=== PATIENT | female | born 1995 | race Caucasian/White ===

== ENCOUNTER → 2018-04-23 14:38 | Outpatient (CLI) | payer MEDICAID, SELFPAY ==
[2018-04-23 17:28] LABS: Chlamydia Trachomatis by PCR Negative (Negative); Neisserai gonorrhoeae by PCR Negative (Negative); Probe Check PASS; Sample Adequacy Control PASS; Specimen Processing Control PASS
== END ==
PROVIDERS: Visit Provider Obstetrics & Gynecology
DX: Z11.3 Encounter for screening for infections with a predominantly sexual mode of transmission (principal)
CPT/HCPCS: 87491; 87591

== ENCOUNTER → 2018-05-17 15:26 | Outpatient (CLI) | payer MEDICAID, SELFPAY ==
[2018-05-17 15:50] LABS: Absolute Lymphocyte Count 2.15 X10^3/ul (0.83-4.51); Absolute Neutrophil Count 6.7 X10^3/uL (2.0-7.7); Basophil# 0.01 X10^3/uL; Basophil% 0.1 % (0-1); Eosinophil# 0.08 X10^3/uL; Eosinophils% 0.8 % (0-5); Hematocrit 34.4 % (37-47); Hemoglobin 11.7 g/dl (12.0-15.0); Lymphocyte # 2.15 X10^3/ul (4.0); Lymphocyte % 22.6 % (19-41); Mean Corpuscular Hgb 32.3 pg (27.0-32.0); Monocyte# 0.59 X10^3/uL; Monocyte% 6.2 % (0-10); Neutrophil # 6.65 X10^3/uL (2.7-7.7); Neutrophil % 70.1 % (47-70); Platelet Count 235 K/mm3 (150-450); RBC Distribution Width CV 11.7 % (11.6-14.6); RBC Distribution Width SD 39.7 fl (35.1-43.9); Red Blood Count 3.62 M/mm3 (4.2-5.4); White Blood Count 9.5 K/mm3 (4.4-11.0)
[2018-05-17 15:51] LABS: POSITIVE COUNT NO; POSITIVE DIFFERENTIAL NO; POSITIVE MORPHOLOGY NO
[2018-05-17 15:58] LABS: Color, Urine Yellow (Yellow); Glucose, Dipstick Normal (Normal); Ketone-Dipstick Negative (Negative); Leukocyte Esterase-Dipstick Negative /ul (Negative); Nitrite-Dipstick Negative (Negative); Occult Blood-Urine Negative /ul (Negative); Protein-Dipstick Negative (Negative); Specific Gravity, Urine 1.015 (1.002-1.030); Urine Bilirubin Dipstick Negative (Negative); Urine Clarity Sl. Cloudy (Clear); Urine Urobilinogen 1 mg/dl (Normal); Urine pH 6.5 (5.0 - 8.0)
[2018-05-17 16:45] LABS: Thyroid Stim Hormone (TSH) 0.72 uIU/mL (0.358-3.74)
[2018-05-17 17:16] LABS: Amphetamine Urine VISTA NEGATIVE (<1000 ng/mL); Barbiturate Urine VISTA NEGATIVE (< 200 ng/mL); Benzodiazepine Urine VISTA NEGATIVE (< 200 ng/mL); Cocaine Urine VISTA NEGATIVE (< 300 ng/mL); Ecstacy Urine VISTA NEGATIVE (< 500 ng/mL); Methadone Urine VISTA NEGATIVE (< 300 ng/mL); PCP Urine VISTA NEGATIVE (< 25 ng/mL); THC Urine VISTA NEGATIVE (< 50 ng/mL); Vista UDS pH Range 6
[2018-05-17 17:23] LABS: HIV - WCH Non-Reactive (Nonreactive)
[2018-05-18 03:12] LABS: Prenatal RPR NONREACTIVE (NONREACTIVE)
[2018-05-20 10:03] LABS: HEPATITIS B SURFACE AG Negative (Negative); Hep C Antibodies <0.1 s/co ratio (0.0-0.9)
== END ==
PROVIDERS: Visit Provider Obstetrics & Gynecology
DX: Z34.81 Encounter for supervision of other normal pregnancy, first trimester (principal)
CPT/HCPCS: 36415; 80307; 81002; 84443; 85025; 86703; 86762; 86803; 87340

== ENCOUNTER → 2018-09-24 13:49 | Outpatient (CLI) | payer MEDICAID, SELFPAY ==
[2018-09-24 16:25] LABS: Glucose Challenge Gest 1H 50g 105 mg/dL (70-140); Hemoglobin 11.7 g/dl (12.0-15.0); Mean Corp Hgb Conc 34.4 g/gl (32-36); Mean Corpuscular Hgb 33.5 pg (27.0-32.0); Mean Corpuscular Volume 97.4 fL (81-99); Mean Platelet Vol. 10.1 fl (6.2-12.0); Platelet Count 257 K/mm3 (150-450); RBC Distribution Width CV 12.5 % (11.6-14.6); RBC Distribution Width SD 42.1 fl (35.1-43.9); Red Blood Count 3.49 M/mm3 (4.2-5.4); White Blood Count 11.9 K/mm3 (4.4-11.0)
[2018-09-24 16:28] LABS: Scan Indicated on CBC? Y/N NO
== END ==
PROVIDERS: Visit Provider Obstetrics & Gynecology
DX: Z34.83 Encounter for supervision of other normal pregnancy, third trimester (principal)
CPT/HCPCS: 36415; 82950; 85027; 86850

== ENCOUNTER → 2018-11-08 15:37 | Outpatient (CLI) | payer MEDICAID, SELFPAY | PROVIDERS: Visit Provider Obstetrics & Gynecology | DX: Z36.85 Encounter for antenatal screening for Streptococcus B (principal) | CPT/HCPCS: 87081 ==

== ENCOUNTER 2018-12-12 15:50 | Inpatient (IN) | payer MEDICAID, SELFPAY ==
[2018-12-12 16:12] VITALS: BMI 27.3
[2018-12-12] MEDS: Lactated Ringers 1,000 ML 50 ML IV (16:20)
[2018-12-12 16:40] LABS: Absolute Lymphocyte Count 2.16 X10^3/uL (0.83-4.51); Absolute Neutrophil Count 9.8 X10^3/uL (2.0-7.7); Basophil# 0.01 X10^3/uL; Basophil% 0.1 % (0-1); Eosinophil# 0.04 X10^3/uL; Eosinophils% 0.3 % (0-5); Hematocrit 37.4 % (37-47); Hemoglobin 12.8 g/dL (12.0-15.0); Lymphocyte # 2.16 X10^3/ul (4.0); Lymphocyte % 16.7 % (19-41); Mean Corp Hgb Conc 34.2 g/dL (32-36); Mean Corpuscular Hgb 33.6 pg (27.0-32.0); Mean Corpuscular Volume 98.2 fL (81-99); Mean Platelet Vol. 10.4 fl (6.2-12.0); Monocyte# 0.85 X10^3/uL; Monocyte% 6.6 % (0-10); NRBC Flagged by Analyzer 0 % (0-5); Neutrophil # 9.81 X10^3/uL (2.7-7.7); Neutrophil % 75.8 % (47-70); Platelet Count 290 K/mm3 (150-450); RBC Distribution Width CV 12.2 % (11.6-14.6); Red Blood Count 3.81 M/mm3 (4.2-5.4); White Blood Count 12.9 K/mm3 (4.4-11.0)
[2018-12-12 17:36] LABS: Amphetamine Urine VISTA NEGATIVE (<1000 ng/mL); Barbiturate Urine VISTA NEGATIVE (< 200 ng/mL); Benzodiazepine Urine VISTA NEGATIVE (< 200 ng/mL); Cocaine Urine VISTA NEGATIVE (< 300 ng/mL); Ecstacy Urine VISTA NEGATIVE (< 500 ng/mL); Methadone Urine VISTA NEGATIVE (< 300 ng/mL); PCP Urine VISTA NEGATIVE (< 25 ng/mL); THC Urine VISTA NEGATIVE (< 50 ng/mL); Vista UDS pH Range 6
--- NOTE | 2018-12-12 17:37 | HP.PCM_ITS ---
History and Physical Date of Admission: 12/12/18 [facility] ANTEPARTUM RECORD - HISTORY AND PHYSICAL (12/12/2018) Name: MARION ZAIDI History of This : This is a 23-year-old patient who presents to labor and delivery for induction for severe IUGR at 40 weeks 5 days gestation. Baby is in the 2nd percentile. OB Physician: REID 's Physician: PED INSTALLER INSPECTOR FINAL ...................................................................... : 1995 Age: 23 Address: [address] [place] [address] Phone: (h) [phone] [facility] Car[facility] [id number] Emergency Contact: KECIA ZAIDI [phone] ...................................................................... Final VALENTINO: 12/07/18 By Ultrasound: PARITY: (G-Total Pregnancies P-Fullterm,Premature,Induced AB,Spont AB, Ectopics, Multiple,Living) VALENTINO CONFIRMATION: By LMP: 03/02/18 Final VALENTINO: 12/07/18 BLOOD TYPE: AFP: 1 HR PG: GBS: Original Ordering Provider: Laisha See Comments: VAGINAL/RECTAL RG Culture Group B Beta Streptococcus is not isolated. Rublla titer (>10 immune)-- Hepatatis B elmer AG-- CULTURES:-- OB PROBLEM LIST: Dilated aortic root in patient; consider echo 20 weeks to confirm stable --stable at 22 weeks MSAFP and CF testing declined O NEGATIVE RhoGAM at 28-29 wks Office childbirth class encouraged. 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 Drug Use - denies use of street drugs Sexual Activity - single sexual partner Residence - lives with mom Place of - [place], [place] Hours Worked - less than 40 Spouse-Sig Other Name - FOB- Kings Thornton Spouse-Sig Other Occupation - [employer] Spouse-Sig Other Phone No - [phone] PRIOR DELIVERY HISTORY DEL DATE GEST LAB WT LB WT OZ TYPE ANES LABOR TX ANTEPARTUM FLOW CHART VISIT GE RTC FU F F MD U U DATE WK MD WKS HT PN HR M SS BP ED WT MD GL D EF ST __ ____ ___ __ __ ___ __ __ __ ___ __ __ __ ___ __ 25 Nov 40 JMW 6 33 V + + 128/68 sl 161 - - 1+ 50 P 18 Nov 39 JMW 1 38 V + + 126/84 tr 161 tr - ft 50 -1 11 Nov JMW 1 38 V + 122/80 sl 159 tr - ft 0 -3 04 Nov 37 JMW 1 124/84 0 157 tr - 28 Oct JMW 1 36 + + 114/80 0 156 - - Oct JMW 1 35 V + + 122/80 sl 155 - - ft 25 -3 Oct JMW 3 34 + + 110/62 0 151 - - Oct 15 SHM 3 28 ? + + 104/68 0 146 - - Sep 12 JMW 2 26 + + 120/70 0 144 - - August 09 JMW 3 22 + + 90/60 0 143 - - August 05 JMW 4 20 + + 122/76 0 140 - - May 31 JMW 4 15 + ? 122/66 0 139 - - Apr 29 JMW 4 + 100/70 0 139 - - ANTEPARTUM NOTE(S): Dec 12 2018: Low Pressure,Backache,Good FM, Ck US for Growth Dec 05 2018: Crampy and low backache,Good FM Nov 28 2018: Good FM,Feeling Well Nov 21 2018: doing well Nov 14 2018: having some congestion and coughing. Reviewed meds allowed. Nov 08 2018: GBS Today,LARC form signed,Goiod FM Oct 18 2018: feeling well. Sep 24 2018: doing well, glucola today Sep 06 2018: Good FM, Feeling Well Aug 16 2018: feeling well. Glucola given., <10th pctle; repeat u/s 3 wks Jul 19 2018: Sono Today, Good FM Jun 14 2018: Nausea and Fatigue Better,Declines AFP,CF May 17 2018: Doing well., US OK COMPREHENSIVE ANTEPARTUM NOTE(S): Dec 12 2018: Feeling well; reports active FM; denies VB, LOF; measuring small, US performed, size < 10th percentile. Risk, benefits of Cytotec cervical ripening followed by pitocin IOL discussed with patient, all questions answered, consents read, and signed; she will go home to gather overnight bag and return to L around 4 PM today. Karin lorenz RN notified via telephone - KVW Nov 28 2018: Feeling well; reports active FM; denies UCs, VB, LOF; VE per pt request soft, posterior, ft/0/-3; discussed warning signs, s/s Labor, when to call/come in; RTO 1 week(s) for PNV - KVW Nov 21 2018: H taken to OB. tkg Nov 21 2018: Reviewed FM, SROM, discomforts, and labor. LMT Nov 21 2018: Feeling well; reports active FM; denies nausea, UCs, VB, LOF; getting nervous about what to expect in labor, discussed techniques to cope, resources to read/watch; discussed warning signs, s/s labor; RTO 1 week (s) for PNV Nov 14 2018: Feeling well; reports active FM; VB, LOF; experiencing congestion r/t environmetal allergies; lungs CTA all lobesl discussed medications, comfort measures for congestion, warning signs, s/s labor; RTO 1 week(s)for PNV Nov 08 2018: Feeling well; reports active FM; deniesd VB, LOF; gbs done today; cervical exam ft/15/-3, soft, posterior; undecided on pain relief method for labor; boyfriend, mother to accompany for ; discussed s/s labor; RTO 1 week Sep 25 2018: Hgb 11.7 g/dl. Glucola 105. WNL. EB Sep 24 2018: PTL, FM precautions. Discussed PPBC. Glucola today. Rhogam given. Sep 24 2018: Rhogam administered IM Rt upper outer quad. Patient tolerated well site without compromise. jlb May 18 2018: O NEG. RI. Positive opiate on NOB tox screen. Hgb 11.7 g/dl. EB May 17 2018: Marion is here for her NOB visit at 10 w 6 d, she is a with an VALENTINO of 12/07/2018. US and PNV with Dr. See completed prior to NOB visit. Offic practice patterns reviewed, including labs that will be collected. Emergencies/danger signs to report, s/s of a UTI, round ligament, and common OTC medications approved/not approved for use during reviewed. She is accompanied today by her mother, with whom she resides. Marion states that SO/FOB, Kings Thornton, plans to be involved. Marion reports that she feels well, denies N/V. She takes an OTC vitamin containing DHA without problems. Delivery at [facility] is planned, she prefers no epidural, and will formula feed baby. Office childbirth classes encouraged. Marion smokes 2-5 cigs/day, having cut back from 1 ppd; ATQ and she states that she wants to do so. Also encouraged to avoid second hand smoke. She denies use of drugs or ETOH. Genetic Screening form completed, she has an enlarged aortic valve. MSAFP and CF testing declined; consent signed as such. Reviewed need for small frequent meals with protein included throughout the day, along with recommended 1 gallon of water per 24 hours; also discussed caloric needs, recommended weight gain, limiting empty calories, and limiting caffeine to one cup a day. Printed guide for food safety during provided with review. 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 She also takes walks several times a week. She voices understanding of all information provided during NOB visit, and has no questions following same. To [facility] draw station for labs. AW Apr 23 2018: Marion is being seen for missed menses appt. Pt is new to this facility. She was seen at [facility] in [place] and was seen for confirmation of but no US was done. Pt was referred to us. She is a 22 yr female with first . UPT in office is positive. LMP 12-14-18. Pt is about 7 weeks and 3 days. VALENTINO is December 07, 2018. Pt just started taking PNV. She is also a smoker who is trying to quit but smoking 2-3 cigarettes a day. She has a hx of anxiety and depression. FOB is her boyfriend who just recently had surgery on his foot. Pt has no allergies or takes any medications. Cultures due today. information reviewed with pt. AM Apr 23 2018: ok REVIEW OF SYSTEMS: GENERAL - Denies fever, or chills SKIN - Denies rash, new skin lesions, or change in moles EYES - Denies blurred vision, or change in visual acuity EARS - Denies ear pain, or difficulty hearing NOSE - Denies nasal congestion, discharge, or bleeding MOUTH - Denies sore throat, or difficulty swallowing NECK - Denies pain or swelling RESPIRATORY - Denies shortness of breath, cough, wheezing CARDIOVASCULAR - Denies palpitations, chest pain, orthopnea, PND, peripheral edema, syncope or claudication GASTROINTESTINAL - Denies nausea, vomiting, diarrhea, constipation, Denies abdominal pain, melena and or bright red blood GENITOURINARY - Denies dysuria, frequency of urination, urgency, or hesitancy MUSCULOSKELETAL - Denies joint or muscle pain, or back pain NEUROLOGICAL - Denies localized numbness, weakness, or tingling PSYCHIATRIC - Denies depression, anxiety, substance abuse or suicide attempts ENDOCRINE - Denies heat or cold intolerance, weight loss or gain, increasing thirst HEMATO-IMMUNOLOGIC - Denies easy bruising, bleeding, oral ulcerations or recurrent infections GENETICS SCREENING: Age 35+ years: No Thalassemia: No Neural Tube Defect: No Down Syndrome: No BERNARDINO-SACHS: No Sickle Cell Disease: No Hemophilia: No Musc. Dystrophy: No Cystic Fibrosis: No-declines screening Pool Chorea: No Mental Retardation: No Fragile X: No Other genetic: No Other defects: No SABs/still births: No Drugs since LMP: No INFECTION HISTORY: High risk AIDS: No High risk Hepatitis: No Exposed to TB: No Exposed to Herpes: No Rash/viral illness since LMP: No History of STD: No MENSTRUAL HISTORY: *Menses Amount/Duration: 5 daysMenses Regularity: RegularFrequency: monthly* PAST SUMMARY: PARITY: 1. Total Pregnancies............ 1 2. Full Term Pregnancies........ 0 3. Premature.................... 0 4. Abortions - Induced.......... 0 5. Abortions - Spontaneous...... 0 6. Ectopics..................... 0 7. Multiple Births.............. 0 8. Living Children.............. 0 PHYSICAL EXAMINATION General Appearence: 23 yo female in no acute distress Vital Signs: AF, VSS Heart: RRR without rubs or gallops Lungs: CTA x 2 Breasts: deferred Abdomen: gravid Pelvis: Cervix: 1+ Presentation: cephalic Station: -3 with posterior cervix Fetus: Size: SGA Movement: present Heart: present Labs for : MARION ZAIDI since 03/12/2018 ORDER DATEIN DESCRIPTION VALUE UNITS RANGE A+ COMMENT CULTURE, GROUP B STREPTOCOCCUS 11/08/18 NOTE Original Ordering Provider: Laisha See Comments: VAGINAL/RECTAL RG Culture Group B Beta Streptococcus is not isolated. Reviewed by LAISHA ANTIBODY SCREEN 09/24/18 [facility]~[address] [place], [address]~ ANTIBODY SCREEN NEGATIVE N Reviewed by ERICK CBC-COMPLETE BLOOD CNT NO DIFF 09/24/18 NOTE Original Ordering Provider: Laisha See WBC 11.9 K/mm3 4.4-11.0 H RBC 3.49 M/mm3 4.2-5.4 L HGB 11.7 g/dl 12.0-15.0 L HCT 34.0 % 37-47 L MCV 97.4 fL 81-99 MCH 33.5 pg 27.0-32.0 H MCHC 34.4 g/glw 32-36 RDW CV 12.5 % 11.6-14.6 RDW SD 42.1 fl 35.1-43.9 PLT 257 K/mm3 150-450 MPV 10.1 fl 6.2-12.0 Reviewed by ERICK GLUCOSE CHALLENGE GEST 1H 50G 09/24/18 NOTE Original Ordering Provider: Laisha See GLU GEST 50G 1H 105 mg/dL 70-140 Reviewed by ERICK HEPATITIS C ANTIBODIES 05/17/18 NOTE Original Ordering Provider: Laisha See HEP C AB <0.1 s/co ratio 0.0-0.9 w Negative: < 0.8 Indeterminate: 0.8 - 0.9 Positive: > 0.9 The CDC recommends that a positive HCV antibody result be followed up with a HCV Nucleic Acid Amplification test (089522). Reviewed by ERICK HEPATITIS B SURFACE AG 05/17/18 NOTE Original Ordering Provider: Laisha See HB SURF AG Negative Negative Performed at: [facility] [id number] Core Blower: Cristian Mueller PhD, Phone: [phone] Reviewed by ERICK RPR 05/17/18 NOTE Original Ordering Provider: Laisha See w RPR NONREACTIVE NONREACTIVE Reviewed by ERICK RUBELLA IGG 05/17/18w NOTE Original Ordering Provider: Laisha See RUBELLA IGG 112.0 IU/mL Antibody results Interpretation of Immune Status < 5 IU/ml Presumed Non-immune 5 - < 10 IU/ml Equivocal > or = 10 IU/ml Presumed Immune HIV - WCHw 05/17/18 NOTE Original Ordering Provider: Laisha See HIV - [facility] Non-Reactive Nonreactive w Reviewed by ERICK URINE DRUG SCREEN (VISTA) 05/17/18 NOTE Original Ordering Provider: Laisha Jgmarielos TO BE CONFIRMED CONFIRMATORY TESTING FOR ALL POSITIVE URINE DRUG SCREEN RESULTS WILL ONLY BE SENT OUT UPON PHYSICIAN ORDER. VISTA Urine Drug Screen methods provide only preliminary analytical test results. A more specific alternate chemical method must be used in order to obtain a confirmed analytical result. Gas chromatography/mass spectrometery (GC/MS) is the preferred confirmatory method. Clinical consideration and professional judgement should be applied to any drug of abuse test result, particularly when preliminary positive results are used. URINE TCA TESTING MUST BE ORDERED SEPARATELY. USE TEST MNEMONIC: [facility] VISTA UDS PH 6 AMPHETAMINES NEGATIVE <1000 ng/mL BARBITIURATES NEGATIVE < 200 ng/mL BENZODIAZIPINE NEGATIVE < 200 ng/mL COCAINE NEGATIVE < 300 ng/mL ECSTACY NEGATIVE < 500 ng/mL METHADONE NEGATIVE < 300 ng/mL OPIATES POSITIVE < 300 ng/mL H PCP NEGATIVE < 25 ng/mL THC NEGATIVE < 50 ng/mL Reviewed by ERICK T AND S-NO CHARGE W/PNP 05/17/18 Reason for Type AND Screen/Red Cells: Surgery? N [facility]~[address] [place], [address]~ BLOOD TYPE GEL O NEGATIVE w N AB SCREEN GEL NEGATIVE N Reviewed by ERICK THYROID STIM HORMONE (TSH) 05/17/18 NOTE Original Ordering Provider: Laisha See TSH 0.72 uIU/mL 0.358-3.74 Reviewed by ERICK URINALYSIS, ROUTINE (DIPSTICK) 05/17/18 NOTE Original Ordering Provider: Laisha Jgmarielos w COLOR Yellow Yellow CLARITY Sl. Cloudy Clear GLUCOSE, UR Normal mg/dl Normal BILIRUBIN URINE Negative mg/dL Negative KETONE UR Negative mg/dl Negative SP.GR. DIPSTX 1.015 1.002-1.030 PH UR 6.5 5.0 - 8.0 PROT DIPSTXw Negative mg/dl Negative UROBILI 1 mg/dl Normal H NITRITE UR Negative Negative OCCULT BLOOD-UR Negative /ul Negative w LEUK ESTERASE Negative /ul Negative Reviewed by ERICK CBC W/DIFF, AUTOMATED 05/17/18 NOTE Original Ordering Provider: Laisha Jgmarielos WBC 9.5 K/mm3 4.4-11.0 RBC 3.62 M/mm3 4.2-5.4 L HGB 11.7 g/dl 12.0-15.0 L HCT 34.4 % 37-47 L MCV 95.0 fL 81-99 MCH 32.3 pg 27.0-32.0 H MCHC 34.0 g/gl 32-36 RDW CV 11.7 % 11.6-14.6 RDW SD 39.7 fl 35.1-43.9 PLT 235 K/mm3 150-450 MPV 10.0 fl 6.2-12.0 NEUT%r 70.1 % 47-70 H LY% 22.6 % 19-41 MONO% 6.2 % 0-10 EO% 0.8 % 0-5 BASO% 0.1 % 0-1 IM GRAN % 0.200 % 0.0-0.9 IG% - Immature Granulocytes (promyelocytes, myelocytes and metamyelocytes) > 1% indicates that a LEFT SHIFT is Present. ABSOLUTE NEUT 6.7 X10 3/uL 2.0-7.7 ABSOLUTE LYMPH 2.15 X10 3/ul 0.83-4.[address]/[facility] BY PCR 04/23/18 NOTE Original Ordering Provider: Laisha See CHLAM TRAC PCR Negativew Negative NG BY PCR Negative Negative Reviewed by LAISHA Impression /Plan: 40 weeks 6-day gestation intrauterine with intrauterine growth restriction. Plan Cytotec induction. Preparations in progress for delivery.
[2018-12-12] MEDS: miSOPROStol 25 MCG TABLET PO ×2 (17:54→22:03)
--- NOTE | 2018-12-12 19:07 | PCM.PN.OB ---
Subjective: Resting in bed, feeling occasional mild cramps; family and SO bedside and supportive Objective: AVSS FHTs: 130 baseline, moderate variability, with accels, no decels UCs: Q 5 minutes Cervix: 1.5/50/-3 at 1750 per RN - Physical Exam General: Alert, Oriented x3, Cooperative, No apparent distress HEENT: PERRLA, EOMI Oral: Moist Mucosa Neck: Supple Lungs: Clear to auscultation, Normal air movement Cardiovascular: Regular rate, Regular Rhythm Abdomen: Bowel Sounds Present, Soft, Non Tender, Non-Distended, Gravid Extremities: No edema, Capillary Refill Less than 3 Seconds Skin: No rashes Musculoskeletal: No Tenderness to Palpation of Joints or Extremities Neurological: Cranial nerves II-XII grossly intact, Deep Tendon Reflexes 2+/4 and Symmetrical Psych/Mental Status: Normal Affect, Appropriate, Alert and oriented to time, place, person, mood and affect Weight: 159 lb 9.835 oz Body Mass Index (BMI) 27.3 Laboratory Tests Past 24 Hrs 12/12/18 12/12/18 12/12/18 16:20 16:20 17:00 WBC 12.9 H RBC 3.81 L Hgb 12.8 Hct 37.4 MCV 98.2 MCH 33.6 H MCHC 34.2 RDW Std Deviation 44.0 H RDW Coeff of Urban 12.2 Plt Count 290 MPV 10.4 Immature Gran % (Auto) 0.500 Neut % (Auto) 75.8 H Lymph % (Auto) 16.7 L Hinds % (Auto) 6.6 Eos % (Auto) 0.3 Baso % (Auto) 0.1 Absolute Neuts (auto) 9.8 H Absolute Lymphs (auto) 2.16 Nucleated RBC % 0 Urine Opiates Screen NEGATIVE Urine Methadone Screen NEGATIVE Ur Barbiturates Screen NEGATIVE Ur Phencyclidine Scrn NEGATIVE Ur Amphetamines Screen NEGATIVE U Methamphetamin-MDMA NEGATIVE U Benzodiazepines Scrn NEGATIVE Urine Cocaine Screen NEGATIVE U Cannabinoids Screen NEGATIVE Ur Drug Screen Comment Blood Type Pending Antibody Screen Pending Medical Necessity - Tobacco Use Smoking Status: Light Smoker (<10/day) Assessment/Plan Assessment: 23 yo IUP @ 40w5d admitted for IUGR, size in 2nd percentile Cat 1 FHTs Plan: Cytotec PO has been started Continuous FM Close observation AROM and pitocin when falk score appropriate Anticipate vaginal delivery
[2018-12-13] VITALS (7 sets, daily range): BP systolic 116–135; BP diastolic 62–90; PULSE 96–115; RESP 14–19; TEMP 37.6–38.3; O2SAT 96–100
[2018-12-13] MEDS: Acetaminophen 325 MG Tablet PO (01:24)
[2018-12-13] MEDS: miSOPROStol 25 MCG TABLET PO ×2 (01:58→06:07)
[2018-12-13] MEDS: Lactated Ringers 500 ML 999 ML IV ×3 (08:39→20:26)
[2018-12-13] MEDS: Lactated Ringers 1,000 ML 50 ML IV (10:29)
--- NOTE | 2018-12-13 14:39 | PN.OBGYN_ITS ---
Subjective: This is a late entry for 12/13/2018 at 1115 Standing at side of bed, breathing through contractions; female family member at bedside and supportive Objective: FHTs: 130 baseline, minimal variability, with early decels, occasional late decel UCs: Q 2-3, Cervix: 3.5/90/-2, soft, mid position - Physical Exam General: Alert, Oriented x3, Cooperative HEENT: PERRLA Neurological: Cranial nerves II-XII grossly intact Psych/Mental Status: Normal Affect, Appropriate, Alert and oriented to time, place, person, mood and affect Weight: 159 lb 9.835 oz Body Mass Index (BMI) 27.3 Intake and Output for Last 24 Hours 12/11/18 12/12/18 12/13/18 23:59 23:59 23:59 Intake Total 183.33 / 183.33 1945.00 / 1945.00 Output Total 500 / 500 500 / 500 Balance -316.67 / -316.67 1445.00 / 1445.00 Laboratory Tests Past 24 Hrs 12/12/18 12/12/18 12/12/18 16:20 16:20 17:00 WBC 12.9 H RBC 3.81 L Hgb 12.8 Hct 37.4 MCV 98.2 MCH 33.6 H MCHC 34.2 RDW Std Deviation 44.0 H RDW Coeff of Urban 12.2 Plt Count 290 MPV 10.4 Immature Gran % (Auto) 0.500 Neut % (Auto) 75.8 H Lymph % (Auto) 16.7 L [place]ona % (Auto) 6.6 Eos % (Auto) 0.3 Baso % (Auto) 0.1 Absolute Neuts (auto) 9.8 H Absolute Lymphs (auto) 2.16 Nucleated RBC % 0 Urine Opiates Screen NEGATIVE Urine Methadone Screen NEGATIVE Ur Barbiturates Screen NEGATIVE Ur Phencyclidine Scrn NEGATIVE Ur Amphetamines Screen NEGATIVE U Methamphetamin-MDMA NEGATIVE U Benzodiazepines Scrn NEGATIVE Urine Cocaine Screen NEGATIVE U Cannabinoids Screen NEGATIVE Ur Drug Screen Comment Blood Type O NEGATIVE Antibody Screen NEGATIVE Medical Necessity - Tobacco Use Smoking Status: Light Smoker (<10/day) Assessment/Plan Assessment: 23 yo IUP @ 40w5d with IUGR, size in 2nd percentile Group B negative Early labor Cat 2 FHTs Plan: Discussed with Dr. Weeman Continuous EFM, Position changes, IV fluid bolus, O2 by facemask PRN Expectant management, close monitoring
[2018-12-13] MEDS: fentaNYL-bupivacaine (epidural) 100 ML BAG EPIDURAL ×2 (14:47→18:43)
--- NOTE | 2018-12-13 15:28 | PN.OBGYN_ITS ---
Subjective: This is a late entry from 12/13/18 1355 Patient resting comfortably with epidural per RN Objective: AVSS FHTs: 120 baseline, minimal to moderate variability with occasional early decels UCs: Q Q 7 minutes Cervix: 3.5/90/-2, soft, mid position per RN - Physical Exam Weight: 159 lb 9.835 oz Body Mass Index (BMI) 27.3 Intake and Output for Last 24 Hours 12/11/18 12/12/18 12/13/18 23:59 23:59 23:59 Intake Total 183.33 / 183.33 2745.00 / 2745.00 Output Total 500 / 500 1400 / 1400 Balance -316.67 / -316.67 1345.00 / 1345.00 Laboratory Tests Past 24 Hrs 12/12/18 12/12/18 12/12/18 16:20 16:20 17:00 WBC 12.9 H RBC 3.81 L Hgb 12.8 Hct 37.4 MCV 98.2 MCH 33.6 H MCHC 34.2 RDW Std Deviation 44.0 H RDW Coeff of Urban 12.2 Plt Count 290 MPV 10.4 Immature Gran % (Auto) 0.500 Neut % (Auto) 75.8 H Lymph % (Auto) 16.7 L [place] % (Auto) 6.6 Eos % (Auto) 0.3 Baso % (Auto) 0.1 Absolute Neuts (auto) 9.8 H Absolute Lymphs (auto) 2.16 Nucleated RBC % 0 Urine Opiates Screen NEGATIVE Urine Methadone Screen NEGATIVE Ur Barbiturates Screen NEGATIVE Ur Phencyclidine Scrn NEGATIVE Ur Amphetamines Screen NEGATIVE U Methamphetamin-MDMA NEGATIVE U Benzodiazepines Scrn NEGATIVE Urine Cocaine Screen NEGATIVE U Cannabinoids Screen NEGATIVE Ur Drug Screen Comment Blood Type O NEGATIVE Antibody Screen NEGATIVE Medical Necessity - Tobacco Use Smoking Status: Light Smoker (<10/day) Assessment/Plan Assessment/Plan Assessment: 23 yo IUP @ 40w5d with IUGR, size in 2nd percentile Group B negative Early labor Cat 2 FHTs Plan: Continuous EFM, Position changes, IV fluid bolus, O2 by facemask PRN Expectant management, close monitoring
[2018-12-13] MEDS: Lactated Ringers 1,000 ML 200 ML IV (16:46)
--- NOTE | 2018-12-13 18:34 | PCM.PN.OB ---
Subjective: Resting comfortably with epidural; family and SO bedside and supportive Objective: AVSS FHTs: 130 baseline, minimal variability with early and variable decels UCs: Q 2-4 Cervix 4.5/100/-2 at 1620 per RN - Physical Exam Weight: 159 lb 9.835 oz Body Mass Index (BMI) 27.3 Intake and Output for Last 24 Hours 12/11/18 12/12/18 12/13/18 23:59 23:59 23:59 Intake Total 183.33 / 183.33 3584.17 / 3584.17 Output Total 500 / 500 1400 / 1400 Balance -316.67 / -316.67 2184.17 / 2184.17 Laboratory Tests Past 24 Hrs 12/12/18 16:20 Blood Type O NEGATIVE Antibody Screen NEGATIVE Medical Necessity - Tobacco Use Smoking Status: Light Smoker (<10/day) Assessment/Plan Assessment: 23 yo IUP @ 40w5d with IUGR, size in 2nd percentile Group B negative Early labor Cat 2 FHTs Plan: Consult with Dr. Mcneal Continuous EFM, Position changes, IV fluid bolus, O2 by facemask PRN Expectant management, close monitoring
--- NOTE | 2018-12-13 18:40 | PCM.PN.BLA ---
Progress Note 40 6/7 IUGR Induction. Epidural AVSS No pitocin on as FHR will not permit EFM: 120-130s min variability. min accels to 140s early decelerations Occasional variable UCs appear inadequate q 5-7 mins At times q 1.5 - 3 mins Cx: 4.5/100/-2 last check. A/P: 40 6/7 wk severe IUGR. No pitocin, labor after AROM Continue labor for now.
[2018-12-13] MEDS: Sodium Citrate/Citric Acid 30 ML UDC PO (21:11)
--- NOTE | 2018-12-13 21:21 | PCM.PN.OB ---
Subjective: comfortable with epidural; SO and mother bedside and supportive Objective: AVSS FHTs: 150 baseline, minimal variability, no accels, early decels UCs: Q 1-3 Cervical exam: Deferred - Physical Exam General: Alert, Oriented x3, Cooperative Neurological: Cranial nerves II-XII grossly intact Psych/Mental Status: Normal Affect, Appropriate, Alert and oriented to time, place, person, mood and affect Weight: 159 lb 9.835 oz Body Mass Index (BMI) 27.3 Intake and Output for Last 24 Hours 12/11/18 12/12/18 12/13/18 23:59 23:59 23:59 Intake Total 183.33 / 183.33 4637.19 / 4637.19 Output Total 500 / 500 1800 / 1800 Balance -316.67 / -316.67 2837.19 / 2837.19 Medical Necessity - Tobacco Use Smoking Status: Light Smoker (<10/day) Assessment/Plan Assessment: 23 yo IUP @ 40w5d with IUGR, size in 2nd percentile Group B negative Non reassuring FHR, inability to tolerate labor Cat 2 FHTs Plan: Dr. Mcneal in Decision for c/section, non emergent
--- NOTE | 2018-12-13 21:24 | PCM.PN.BLA ---
Progress Note 40 6/7 wk IUGR. Admitted last night for Cytotec induction. To AROM this AM. Unable to start pitocin 2/2 FHR with minimal variability. Cervix 4.5 cm last check. EFM 120-130s small accels. Dec BTB variability UCs very irregular, inadequate mVUs A/P: 40 6/7 wk IUGR intolerance of labor. Unable to augment with pitocin Minimal variability. Advised primary C section for status. Reviewed anticipated operative and postop course. R,B,A reviewed. Proceed to C section. OB dept aware. All questions answered to patient's satisfaction.
--- NOTE | 2018-12-13 21:27 | DCINST_ITS ---
Discharge Diet: No Restrictions Discharge Activity: May not drive while taking narcotic pain medications., May Shower, May Take a Tub Bath May resume sexual activity in: 4-6 weeks Lifting Restrictions: 20 pounds Additional Activity Instructions:: Nothing in the vagina for 4-6 weeks. You may return to work/school in 6 weeks. Change Dressing in (Days):: 7 Remove Dressing in (days):: 7 Cleanse incision/area with: Soap & Water, Keep Dressing Clean & Dry Additional Instructions: If you experience any of the following, contact your healthcare provider. * Bleeding that soaks a pad every hour for 2 hours * Fever 100.4 or higher * Unrelieved incision or abdominal pain * Swelling, redness, discharge or bleeding from your incision * Problems urinating (including inability to urinate or burning while urinating). * Visual changes * Severe headache * Flu-like symptoms * Pain or redness in one of both of your breasts * Pain, warmth, tenderness or swelling in your legs, especially the calf area * Frequent nausea and vomiting * Symptoms of depression or anxiety If you experience any of the following, call 911 or go to the nearest Emergency Room. * Chest pain * Problems breathing * Seizure activity * Partial or complete paralysis of a body part, slurred speech, weakness or drooping of the face, or a sudden inability to walk or hold your balance Allergies/Adverse Reactions: Allergies No Known Allergies Allergy (Verified 12/12/18 16:36) Medications to take at Discharge Vits [Prenatabs FA ] 1 tab PO DAILY 12/12/18 Docusate Sodium [Colace] 100 mg PO BID #30 cap 12/13/18 Naproxen [Naprosyn] 250 - 500 mg PO TID PRN PRN #30 tab 12/13/18 Oxycodone [Oxyir] 5 mg PO Q6H PRN PRN 3 Days #15 tablet 12/13/18 The following prescriptions were given: Docusate Sodium [Colace] 100 mg PO BID #30 cap [facility] Naproxen [Naprosyn] 250 - 500 mg PO TID PRN PRN #30 tab PRN Reason: Mild-Mod Pain (1-07/27) Transmission [facility] Oxycodone [Oxyir] 5 mg PO Q6H PRN PRN 3 Days #15 tablet PRN Reason: Mod-Severe Pain (4-12/27) Transmission Status: Sent to [id number] Follow-Up: Call to make an appointment with your doctor for an incision check in 1-2 weeks. You will also need a 6 week post- follow up appointment. Test results from this visit will be discussed in further detail at your follow- up appointment, if applicable. Please Follow Up With: Tito See MD - [phone] When: Call to make an appointment for an incision check in 2 weeks. Primary Care Physician: Care Physician,No Primary [Primary Care Provider] -
[2018-12-13] MEDS: Cefazolin 2 GM in 0.9% Normal Saline 100 ML IV (21:28)
--- NOTE | 2018-12-13 22:09 | OP.PCM_ITS ---
Report of Operation Date of Procedure: 12/13/18 Description of Surgical Findings:: ann viable female 5# 14 oz VTX. Foul smelling amniotic fluid. Thick mucous secretions at OP and nares. Ap 8/10 Normal appearing uterus , fallopian tubes and ovaries. Specimen's removed: Placenta to path (foul odor noted) Drains: Mauro, clear yellow urine Estimated Blood Loss (mL): 600 Fluids Replaced: LR Description of Procedure: Narrative account: After the risks, benefits and alternatives of the procedure were reviewed with the patient, informed consent was obtained. The patient was taken to the Operating room with an IV running, epidural catheter in place and Mauro catheter in place. the epidural was dosed to surgical levels. She was positioned in dorsal supine position on the operating table and briefly frog-legged for vaginal vault prep, and then repositioned to dorsal supine position with leftward displacement of the uterus, and prepped and draped in the usual sterile fashion. Once the epidural was deemed adequate, a Pfannenstiel skin incision was created using the knife and the incision was carried down to the rectus fascia using the knife. The fascia was nicked in the midline. The fascial incision was extended bilaterally using curved Levin scissors. The superior aspect of the fascial incision was grasped with Seven clamps and tented up and the underlying rectus abdominal muscles were dissected free. In a similar manner, the inferior aspect of the facial incision was grasped with Seven clamps tented up and the underlying rectus abdominal muscles were dissected free. The rectus abdominis muscles were in the midline and the peritoneum was identified and entered by blunt dissection high in the incision. The peritoneum was stretched laterally and a bladder blade was inserted. A bladder flap was created along the lower uterine segment with Metzenbaum scissors . The uterine incision was then created using Metzenbaum scissors. The operators fingertips were used to extend the uterine incision by blunt dissection in a caudad- cephalad orientation . Clear fluid was noted at amniotomy. The vertex was then delivered atraumatically through the incision. A thin nuchal cord times one was reduced and the shoulders delivered easily. The OP and nares were bulb suctioned on the abdomen. There were thick mucous secretions noted. The cord clamped x two and cut. And the infant was handed off to the nurse awaiting delivery after briefly showing her to her parents. The baby had good tone and a weak cry initially. The placenta was then delivered. A foul odor was noted. The uterus was exteriorized and cleared of clots and debris . The uterine incision was repaired with 1 Vicryl in a running locked fashion. A second imbricating layer was then placed, using 1 Monocryl in running nonlocked fashion. Bovie cautery was used to treat any bleeding areas . Excellent hemostasis was noted. At this point the uterus was returned to the abdominal cavity. The gutters were cleared of clots and debris and the incision at the uterus was inspected. Surgicell was applied along the entire incision for continued hemostasis. Excellent hemostasis was noted. The peritoneal edges and rectus abdominis muscles were reapproximated in the midline with a continuous suture of 1 Vicryl. Excellent hemostasis was noted at the subfascial space The fascia was closed in a running nonlocked fashion with a Stratofix. The Subcutaneous fatty tissue was Bovie cauterized as needed for hemostasis. Surgicel was applied at this layer to prevent seroma formation. This layer was then reapproximated in a single layer closure of running 3-0 Vicryl to eliminate space. The skin edges were closed in a Subcuticular stitch of 4-0 Monocryl. The incision was cleansed. Cavilon, Steristrips, and Mepilex dressing were applied to the skin . The patient was then transferred to the recovery room bed in stable condition after tolerating the procedure well. Sponge, lap, needle and instrument counts correct times two. Medications given preop and intraoperatively included: Ancef 2 gm and A zithromycin 500 mg were given IV patient registration representative to the operating room. The patient also received Pitocin given IV after cord clamp, and Toradol 30 mg IV times one. For a complete listing of medications given preop and intraoperatively, please see the anesthesia record. - Admit VTE Documentation VTE Present on Admission: No VTE Mechan Device Prophylaxis: SCD's VTE Pharm Prophylaxis ordered?: No Delivery Classification: DEBI Final VALENTINO: 12/07/18 Gestational age: 40 Weeks and 6 Days communication center coordinator: Lynda Kyle Type of Anesthesia:: Epidural - Rod Liu CRNA Date of Procedure: 12/13/18 Pre-Operative Diagnosis: 40 6/7 wk IUGR, Cytotec induction. AROM. Nonreassuring FHR tracing. minimal variability. unable to start pitocin Inadequate labor. Post-Operative Diagnosis: Same Indications: nonreassuring FHR tracing Indications for : Nonreassuring Status - IUGR Decreased variability
--- NOTE | 2018-12-13 22:36 | PLAC_PTH ---
PATIENT: MARION ZAIDI LOC: WP U#:[id number] AGE/SX: 23/F ROOM: WP003 RE12/12/[address]: Dr. 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 Placental membranes - acute chorioamnionitis and acute deciduitis. Placental disc - focal organizing intraparenchymal hemorrhage, increased intraparenchymal microcalcifications and intravillous congestion. Acute vasculitis of superficial placental vessels and focal nonspecific chronic villitis. AM:juan 12/18/18 MICROSCOPIC DESCRIPTION Slides are reviewed. GROSS DESCRIPTION SPECIMEN: PLACENTA / CLINICAL INFORMATION: A. Weight: 2.678 kg B. Gestational Age: 40 weeks C. Sex: Female PLACENTAL WEIGHT (POST FIXATION): 504 gm PLACENTAL DIMENSIONS: 20 x 19 x 4 cm PLACENTAL SHAPE: Usual ovoid PLACENTAL WEIGHT FOR GESTATIONAL AGE: Within 10-99th percentile MEMBRANES - Present A. Insertion: Marginal B. Site of rupture from edge: 6 cm from edge of placental disc C. Color of membrane: -cohen D. Abnormalities: None UMBILICAL CORD - Present A. Color: -cohen B. Insertion: Central C. Length: 23 cm D. Diameter: 1.2 cm E. Number of vessels: Three F. Abnormalities: None PLACENTAL DISC - Present A. Color of surface: -cohen B. surface abnormalities: None C. Maternal cotyledons: Intact with minimal tears. Maternal surface appears partly disrupted, however, appears to be complete. D. Attached retro placental clot: No clot E. Cut surface: Dark red and spongy F. Lesions: None G. Separate clot: Absent SECTIONS SUBMITTED: 1. Membrane roll 2. Cord, maternal end 3. Cord, end 4. Placental disc, and maternal surfaces 5. Placental disc, and maternal surfaces 6. Placental disc, and maternal surfaces ALBERT:juan 12/17/18 TC:2 CPT: 54504
[2018-12-13] MEDS: Oxytocin 30 units/NS 500 ml 30 UNITS/500 ML IV.SOLN 167 UNITS IV (22:45)
[2018-12-14] VITALS (16 sets, daily range): BP systolic 92–133; BP diastolic 49–84; PULSE 65–102; RESP 15–18; TEMP 36.4–37.3; O2SAT 95–100
[2018-12-14 01:52] LABS: Pathology Specimen OB SEE PATHOLOGY REPORT
[2018-12-14] MEDS: Lactated Ringers 1,000 ML 100 ML IV ×2 (01:59→11:44)
[2018-12-14] MEDS: Ketorolac 30 MG/ML Syringe IV ×4 (04:12→21:37)
[2018-12-14 04:43] LABS: Hematocrit 31.5 % (37-47); Hemoglobin 10.7 g/dL (12.0-15.0); Mean Corpuscular Hgb 33.6 pg (27.0-32.0); Mean Corpuscular Volume 99.1 fL (81-99); Mean Platelet Vol. 10.4 fl (6.2-12.0); Platelet Count 217 K/mm3 (150-450); RBC Distribution Width SD 43.9 fl (35.1-43.9); Red Blood Count 3.18 M/mm3 (4.2-5.4); White Blood Count 23.4 K/mm3 (4.4-11.0)
--- NOTE | 2018-12-14 07:34 | PCM.PN.OB ---
Subjective: 40 6/7 wk IUGR Primary C section for intolerance of labor. Foul odor to placenta, amniotic fluid Doing well. No concerns voiced. Pain control adequate, states she is sore Baby in room and no antibiotics. pt with initial temp immediately after surgery in recovery, now afeb. Objective: Lying in bed, NAD - Physical Exam General: Alert, Oriented x3, Cooperative, No apparent distress HEENT: Atraumatic, EOMI Neck: Supple Abdomen: Soft - tender consistent with postop status Fundus firm at 2-3 cm inferior to umbilicus Skin: Incision - Mepilex CDI. less than 1 cm spot of old drainage at R side marked, no extensin. Psych/Mental Status: Normal Affect Vital Signs Temp Pulse Resp BP Pulse Ox 98.0 F 75 18 95/49 L 95 12/14/18 06:23 12/14/18 06:23 12/14/18 06:23 12/14/18 06:23 12/14/18 06:23 Oxygen Delivery Method Room Air Weight: 72.4 kg Body Mass Index (BMI) 27.3 Intake and Output for Last 24 Hours 12/12/18 12/13/18 12/14/18 23:59 23:59 23:59 Intake Total 183.33 / 183.33 4787.19 / 4787.19 500 / 500 Output Total 500 / 500 2100 / 2100 100 / 100 Balance -316.67 / -316.67 2687.19 / 2687.19 400 / 400 Laboratory Tests Past 24 Hrs 12/14/18 04:25 WBC 23.4 H RBC 3.18 L Hgb 10.7 L Hct 31.5 L MCV 99.1 H MCH 33.6 H MCHC 34.0 RDW Std Deviation 43.9 RDW Coeff of Urban 12.0 Plt Count 217 MPV 10.4 Medical Necessity - Tobacco Use Smoking Status: Light Smoker (<10/day) Assessment/Plan 40 6/7 wk IUGR Primary C section for intolerance of labor. Foul odor to placenta, amniotic fluid Stable postop. Afeb since initial T max in recovery of 100.9 deg --Begin po meds --Inc diet and activity as tolerated --D/C Mauro later today. --S/L IV for continued Toradol Leukocytosis, remains AFEB Watch for fevers. -- Placenta sent for path 2/2 IUGR and intolerance of labor, foul odor noted at delivery. -- repeat CBC PD#2 to recheck WBCs Continue routine postop care., care.
[2018-12-14] MEDS: Acetaminophen 500 MG Tablet 1000 MG PO (19:59)
[2018-12-14] MEDS: 0.9% Saline Lock 10 ML Syringe IV (21:37)
[2018-12-14] MEDS: oxyCODONE 5 MG Tablet PO (22:51)
[2018-12-15 01:23] VITALS: BP 106/73; PULSE 68; RESP 18; TEMP 36.5; O2SAT 98
[2018-12-15] MEDS: oxyCODONE 5 MG Tablet PO ×3 (03:12→12:10)
[2018-12-15] MEDS: Ketorolac 30 MG/ML Syringe IV ×3 (03:13→16:00)
[2018-12-15] MEDS: 0.9% Saline Lock 10 ML Syringe IV ×3 (03:14→16:02)
[2018-12-15 04:46] LABS: Hemoglobin 10.1 g/dL (12.0-15.0); Mean Corp Hgb Conc 33.7 g/dL (32-36); Mean Corpuscular Hgb 33.9 pg (27.0-32.0); Mean Corpuscular Volume 100.7 fL (81-99); Mean Platelet Vol. 10.2 fl (6.2-12.0); Platelet Count 206 K/mm3 (150-450); RBC Distribution Width CV 12.4 % (11.6-14.6); RBC Distribution Width SD 45.5 fl (35.1-43.9); Red Blood Count 2.98 M/mm3 (4.2-5.4); White Blood Count 18.7 K/mm3 (4.4-11.0)
[2018-12-15 07:45] VITALS: BP 104/74; PULSE 74; RESP 16; TEMP 36.7
--- NOTE | 2018-12-15 09:00 | PCM.PN.OB ---
Subjective: Patient without complaints. Total feeding. Normal vaginal bleeding. Pain well controlled. Positive flatus. Wants to go home today if possible. - Physical Exam Vital Signs Temp Pulse Resp BP Pulse Ox 97.7 F L 68 18 106/73 98 12/15/18 01:23 12/15/18 01:23 12/15/18 01:23 12/15/18 01:23 12/15/18 01:23 Oxygen Delivery Method Room Air Weight: 159 lb 9.835 oz Body Mass Index (BMI) 27.3 Intake and Output for Last 24 Hours 12/13/18 12/14/18 12/15/18 23:59 23:59 23:59 Intake Total 5152.19 / 5152.19 1601.67 / 1601.67 Output Total 2100 / 2100 1650 / 1650 Balance 3052.19 / 3052.19 -48.33 / -48.33 Laboratory Tests Past 24 Hrs 12/15/18 04:30 WBC 18.7 H RBC 2.98 L Hgb 10.1 L Hct 30.0 L MCV 100.7 H MCH 33.9 H MCHC 33.7 RDW Std Deviation 45.5 H RDW Coeff of Urban 12.4 Plt Count 206 MPV 10.2 Wound is clean, dry, intact. Good urine output. White count decreasing. Hemoglobin stable. Medical Necessity - Tobacco Use Smoking Status: Light Smoker (<10/day) Assessment/Plan Doing well postoperative day #2 status post primary section. Will release to home with routine instructions.
--- NOTE | 2018-12-15 09:02 | PCM.DC.BLA ---
Discharge Summary Date of Admission: 12/12/18 Date of Discharge: 12/15/18 Summary: Admission diagnosis: IUGR, postdatism Discharge diagnosis: IUGR, postdatism, nonreassuring heart tones, failure to progress Procedure: Primary low transverse cervical section HPI: Uneventful care. PE: Unremarkable. Hospital Course: The patient is a 23 year old G 1 P 0 who presented to [facility] at 40 weeks 6 days weeks gestation. She subsequently had a primary for nonreassuring heart tones and failure to progress. Postoperatively she did well demonstrating a stable HGB on POD 1 and bowel fxn by POD 2 at which time it was felt she was ready for discharge. Homegoing Instruction: She was instructed not to drive for several days or if using narcotic pain medication, not to put anything in the vagina for 4 weeks, not to lift >25 lbs for 6 weeks and to call the office for an appointment in 2 weeks and 6 weeks. Discharge Medications: She was given a prescription for Oxycodone and Colace and also plans to use Aleve or Motrin or Tylenol at home as needed for pain and constipation. - Physical Exam Vital Signs Temp Pulse Resp BP Pulse Ox 97.7 F L 68 18 106/73 98 12/15/18 01:23 12/15/18 01:23 12/15/18 01:23 12/15/18 01:23 12/15/18 01:23 Oxygen Delivery Method Room Air Weight: 159 lb 9.835 oz Body Mass Index (BMI) 27.3 Intake and Output for Last 24 Hours 12/13/18 12/14/18 12/15/18 23:59 23:59 23:59 Intake Total 5152.19 / 5152.19 1601.67 / 1601.67 Output Total 2100 / 2100 1650 / 1650 Balance 3052.19 / 3052.19 -48.33 / -48.33 Laboratory Tests Past 24 Hrs 12/15/18 04:30 WBC 18.7 H RBC 2.98 L Hgb 10.1 L Hct 30.0 L MCV 100.7 H MCH 33.9 H MCHC 33.7 RDW Std Deviation 45.5 H RDW Coeff of Ruban 12.4 Plt Count 206 MPV 10.2
[2018-12-15] MEDS: Senna/Docusate Sodium 1 Tablet PO (12:14)
[2018-12-15 14:00] VITALS: BP 111/81; PULSE 75; RESP 16; TEMP 36.6
[2018-12-15 18:53] VITALS: BP 113/80; PULSE 81; RESP 16; TEMP 36.5
== END 2018-12-15 19:15 | disposition home or self-care (01) | DRG 540 ==
PROVIDERS: Admitting Provider Obstetrics & Gynecology; Referring Provider Obstetrics & Gynecology; Visit Provider Obstetrics & Gynecology
DX: O76 Abnormality in fetal heart rate and rhythm complicating labor and delivery (principal); O36.5930 Maternal care for other known or suspected poor fetal growth, third trimester, not applicable or unspecified; O48.0 Post-term pregnancy; O62.2 Other uterine inertia; O69.81X0 Labor and delivery complicated by cord around neck, without compression, not applicable or unspecified; O99.334 Smoking (tobacco) complicating childbirth; F17.210 Nicotine dependence, cigarettes, uncomplicated; O90.89 Other complications of the puerperium, not elsewhere classified; D72.829 Elevated white blood cell count, unspecified; O43.893 Other placental disorders, third trimester; Z3A.40 40 weeks gestation of pregnancy; Z37.0 Single live birth
CPT/HCPCS: 59025; 59050; 80307; 85025; 85027; 86850; 86900; 86901; 88307; 99218; J7120; A4216; G0378; J2405

== ENCOUNTER → 2019-01-23 14:32 | Outpatient (CLI) | payer MEDICAID, SELFPAY | PROVIDERS: Referring Provider Obstetrics & Gynecology; Visit Provider Obstetrics & Gynecology | DX: Z12.4 Encounter for screening for malignant neoplasm of cervix (principal) | CPT/HCPCS: 88175; G0145 ==

== ENCOUNTER → 2020-03-09 | Outpatient (CLI) | payer MEDICAID, SELFPAY | END | disposition home or self-care (01) | LOC: LABSPEC 16:03 | PROVIDERS: Visit Provider Obstetrics & Gynecology | DX: Z12.4 Encounter for screening for malignant neoplasm of cervix (principal) | CPT/HCPCS: 88175; G0145 ==

== ENCOUNTER 2021-05-07 13:19 | Outpatient (CLI) | payer MEDICAID, SELFPAY ==
[2021-05-07 13:57] LABS: Color, Urine Yellow (Yellow); Glucose, Dipstick Normal (Normal); Ketone-Dipstick 5 mg/dl (Negative); Leukocyte Esterase-Dipstick 25 /ul (Negative); Nitrite-Dipstick Negative (Negative); Occult Blood-Urine Negative /ul (Negative); Protein-Dipstick 15 mg/dl (Negative); Urine Bilirubin Dipstick Negative (Negative); Urine Clarity Sl. Cloudy (Clear); Urine Urobilinogen 1 mg/dl (Normal)
[2021-05-07 14:07] LABS: Amphetamine Urine VISTA NEGATIVE (<1000 ng/mL); Barbiturate Urine VISTA NEGATIVE (< 200 ng/mL); Benzodiazepine Urine VISTA NEGATIVE (< 200 ng/mL); Cocaine Urine VISTA NEGATIVE (< 300 ng/mL); Ecstacy Urine VISTA NEGATIVE (< 500 ng/mL); Methadone Urine VISTA NEGATIVE (< 300 ng/mL); PCP Urine VISTA NEGATIVE (< 25 ng/mL); THC Urine VISTA NEGATIVE (< 50 ng/mL); Vista UDS pH Range 7
[2021-05-07 15:44] LABS: Absolute Neutrophil Count 9.9 X10^3/uL (2.0-7.7); Basophil# 0.03 X10^3/uL; Basophil% 0.2 % (0-1); Eosinophil# 0.03 X10^3/uL; Eosinophils% 0.2 % (0-5); Hematocrit 37.7 % (37-47); Hemoglobin 13.2 g/dL (12.0-15.0); Lymphocyte % 19.5 % (19-41); Mean Corpuscular Hgb 33.4 pg (27.0-32.0); Mean Corpuscular Volume 95.4 fL (81-99); Mean Platelet Vol. 10.7 fl (6.2-12.0); Monocyte# 0.67 X10^3/uL; NRBC Flagged by Analyzer 0 % (0-5); Neutrophil # 9.93 X10^3/uL (2.7-7.7); Neutrophil % 74.4 % (47-70); Platelet Count 309 K/mm3 (150-450); RBC Distribution Width CV 13.2 % (11.6-14.6); RBC Distribution Width SD 46.7 fl (35.1-43.9); Red Blood Count 3.95 M/mm3 (4.2-5.4); White Blood Count 13.4 K/mm3 (4.4-11.0)
[2021-05-07 16:08] LABS: Thyroid Stim Hormone (TSH) 1.07 uIU/mL (0.358-3.74)
[2021-05-10 10:14] LABS: HIV - WCH Non-Reactive (Nonreactive); Hepatitis B Surface Antigen Non-Reactive (Nonreactive); Hepatitis C Antibody Non-Reactive (Nonreactive); Rubella IgG Reactive (Nonreactive); Syphilis Antibodies Non-reactive
[2021-05-10 12:08] LABS: Chlamydia By Nucleic Acid AMP Negative (Negative)
[2021-05-10 13:38] LABS: Gonococcus By Nucleic Acid AMP Negative (Negative)
== END 2021-05-07 23:59 | disposition home or self-care (01) ==
LOC: WOBLAB 13:20
PROVIDERS: Visit Provider Obstetrics & Gynecology
DX: Z34.82 Encounter for supervision of other normal pregnancy, second trimester (principal); Z11.3 Encounter for screening for infections with a predominantly sexual mode of transmission
CPT/HCPCS: 36415; 80307; 81002; 84443; 85025; 86703; 86762; 86780; 86803; 87077; 87086; 87088; 87340; 87491; 87591

== ENCOUNTER 2021-06-23 11:33 | Outpatient (CLI) | payer MEDICAID, SELFPAY ==
[2021-06-23 12:48] LABS: Hemoglobin 11.4 g/dL (12.0-15.0); Mean Corp Hgb Conc 33.5 g/dL (32-36); Mean Corpuscular Hgb 32.1 pg (27.0-32.0); Mean Corpuscular Volume 95.8 fL (81-99); Mean Platelet Vol. 10.3 fl (6.2-12.0); Platelet Count 317 K/mm3 (150-450); RBC Distribution Width CV 13.3 % (11.6-14.6); RBC Distribution Width SD 47.1 fl (35.1-43.9); Red Blood Count 3.55 M/mm3 (4.2-5.4); White Blood Count 12.2 K/mm3 (4.4-11.0)
[2021-06-23 12:53] LABS: Glucose Challenge Gest 1H 50g 88 mg/dL (70-140)
== END 2021-06-23 23:59 | disposition home or self-care (01) ==
LOC: WOBLAB 11:34
PROVIDERS: Visit Provider Obstetrics & Gynecology
DX: Z34.82 Encounter for supervision of other normal pregnancy, second trimester (principal)
CPT/HCPCS: 36415; 82950; 85027

== ENCOUNTER → 2021-07-07 | Outpatient (CLI) | payer MEDICAID, SELFPAY | END | disposition home or self-care (01) | LOC: WOBLAB 12:36 | PROVIDERS: Visit Provider Obstetrics & Gynecology | DX: Z34.83 Encounter for supervision of other normal pregnancy, third trimester (principal) | CPT/HCPCS: 36415; 86850 ==

== ENCOUNTER → 2021-08-26 | Outpatient (CLI) | payer MEDICAID, SELFPAY | END | disposition home or self-care (01) | PROVIDERS: Visit Provider Obstetrics & Gynecology | DX: Z36.85 Encounter for antenatal screening for Streptococcus B (principal) | CPT/HCPCS: 87081 ==

== ENCOUNTER 2021-09-09 09:30 | Inpatient (IN) | payer MEDICAID, SELFPAY ==
[2021-09-09] VITALS (18 sets, daily range): BP systolic 102–131; BP diastolic 58–85; PULSE 52–85; RESP 14–18; TEMP 36–36.6; O2SAT 97–100; BMI 25.7
--- NOTE | 2021-09-09 | PLAC_PTH ---
PATIENT: MARION ZAIDI LOC: WP U#:[id number] AGE/SX: ROOM: WP007 RE09/09/[address]: Dr. Tito See MD : 1995 BED: 1 DIS: 09/10/2021 SPEC #: [id number] RECD: 09/09/21 14:41 STATUS: CODY REQ #: [id number] FAUSTINO: 09/09/21 00:[address]: Tito See DEPT: SURGICAL PATHOLOGY RECD BY: Aki Judd ENTERED: 09/10/21 08:15 SP TYPE: PLACENTA OTHR DR: No Primary Care Phys Tissues: Placenta, NOS Procedures: Surgery Specimen Level V HEADER OPERATION: Repeat section PRE-OP DIAGNOSIS: Possible placenta accreta TISSUE SUBMITTED: Placenta MICROSCOPIC DIAGNOSIS Placenta: Placental disc - third trimester placenta, fragmented (443 gm). - Benign vascular proliferation, consistent with hemangioma (1.5 cm in greatest dimension). - Focal areas of intraparenchymal hemorrhage. - Focal intervillous and perivillous fibrin deposition. Membranes - no pathologic diagnosis. Umbilical cord - three blood vessels and no pathologic diagnosis. See comment. SJ:juan 09/14/2021 COMMENT Increased number of blood vessels are also noted in the ill-defined firm areas. Case has been reviewed in consultation with Dr. Burkett who concurs with the above diagnosis. IDC:AM MICROSCOPIC DESCRIPTION Slides are reviewed. GROSS DESCRIPTION SPECIMEN: PLACENTA / CLINICAL INFORMATION: A. Weight: 2.38 kg B. Gestational Age: 38 weeks C. Sex: Female PLACENTAL WEIGHT (POST FIXATION): The body of the placenta including detached pieces of placental tissue weighs in aggregate 443 gm. PLACENTAL DIMENSIONS: The largest piece of placenta measures 15 x 15 x 3 cm. Detached pieces of placental tissue measures in aggregate 8 x 5.5 x 2.5 cm. PLACENTAL SHAPE: Ovoid with detached fragment of tissue. PLACENTAL WEIGHT FOR GESTATIONAL AGE: Within 10-99th percentile MEMBRANES - Present A. Insertion: Marginal B. Site of rupture from edge: The membranes are fragmented and appears to ruptured at the margin of the placenta. C. Color of membrane: Rush-cohne D. Abnormalities: None UMBILICAL CORD - Present A. Color: Rush-cohen B. Insertion: Paracentral C. Length: 34 cm D. Diameter: 1 cm E. Number of vessels: Three F. Abnormalities: None PLACENTAL DISC - Present A. Color of surface: Rush-cohen B. surface abnormalities: None C. Maternal cotyledons: The body of the placenta is disrupted and detached pieces of placental tissue are also noted. The completeness of placenta could not be assessed due to fragmented nature of the specimen. D. Attached retro placental clot: No clot E. Cut surface: Dark red and spongy F. Lesions: Sections reveal multiple rush, indurated areas, largest measuring 1.5 cm in greatest dimension. Ill-defined firm areas are also noted. G. Separate clot: Absent SECTIONS SUBMITTED: 1. Membrane roll 2. Cord, maternal end 3. Cord, end 4. Placental disc, and maternal surfaces, largest lesion 5. Placental disc, and maternal surfaces, lesion 6. Placental disc, and maternal surfaces, lesion 7. Placental disc, and maternal surfaces, lesion 8. Placental disc, and maternal surfaces, ill-defined firm area 9. Placental disc, and maternal surfaces ALBERT:juan 09/13/2021 TC:5 CPT: 99258
[2021-09-09] MEDS: Lactated Ringers 1,000 ML 999 ML IV (09:50)
[2021-09-09 10:11] LABS: Absolute Lymphocyte Count 2.55 X10^3/uL (0.83-4.51); Absolute Neutrophil Count 8.8 X10^3/uL (2.0-7.7); Basophil# 0.02 X10^3/uL; Basophil% 0.2 % (0-1); Eosinophil# 0.03 X10^3/uL; Eosinophils% 0.2 % (0-5); Hematocrit 32.7 % (37-47); Hemoglobin 10.5 g/dL (12.0-15.0); Lymphocyte # 2.55 X10^3/ul (0.83-4.51); Mean Corp Hgb Conc 32.1 g/dL (32-36); Mean Corpuscular Hgb 29.2 pg (27.0-32.0); Mean Corpuscular Volume 90.8 fL (81-99); Mean Platelet Vol. 10.6 fl (6.2-12.0); Monocyte# 0.63 X10^3/uL; Monocyte% 5.2 % (0-10); NRBC Flagged by Analyzer 0 % (0-5); Neutrophil # 8.82 X10^3/uL (2.7-7.7); Neutrophil % 72.7 % (47-70); Platelet Count 276 K/mm3 (150-450); RBC Distribution Width CV 13.9 % (11.6-14.6); White Blood Count 12.1 K/mm3 (4.4-11.0)
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
[2021-09-09] MEDS: Acetaminophen 500 MG Tablet 1000 MG PO ×3 (10:37→23:25)
[2021-09-09] MEDS: Lactated Ringers 1,000 ML 150 ML IV (10:49)
[2021-09-09] MEDS: Sodium Citrate/Citric Acid 30 ML UDC PO (10:51)
[2021-09-09] MEDS: Cefazolin 2 GM in 0.9% Normal Saline 100 ML IV (10:56)
--- NOTE | 2021-09-09 11:00 | PCM.OPRPT ---
Report of Operation Date of Procedure: 09/09/21 Pre-Operative Diagnosis: Intrauterine Growth Restriction, Prior Section Post-Operative Diagnosis: Intrauterine Growth Restriction, Prior Section, Possible Placenta Accreta Surgery/Procedure Performed:: Repeat Low Transverse Cervical Section Description of Surgical Findings:: Viable female infant with Apgars of 9/10 weighing 5 lb 4 oz in occiput anterior presentation with clear amniotic fluid and normal three-vessel placenta. Densely adhered placenta to fundus of uterus removed in pieces with ring forceps and banjo curette. Hematoma on the left angle of the Pfannenstiel incision and hematoma left posterior uterus. Surgeon: Tito See felled seam operator chainstitch: Lynda Kyle Type of Anesthesia: Spinal (With Duramorph) Anesthesiologist: Meghan Aggarwal Specimen's removed: None Drains: Mauro to straight drain Estimated Blood Loss (mL): 500 cc Fluids Replaced: Crystalloid Description of Procedure: Surgeon: Tito See MD, FACOG Procedure: Repeat Low Transverse Cervical Caesarean Section Indication: This is a 25-year-old who presents for her second at 38+ weeks gestation. care has remarkable for intrauterine growth restriction followed with biophysical profiles and nonstress testing in the office. The patient has been counseled regarding the risk and indications of this procedure including the possibility of bleeding infection and injury to surrounding structures such as bowel bladder. All questions were answered. Procedure: Patient was taken to the operating room where after spinal anesthesia was placed, the patient was prepped and draped in usual sterile fashion and a Mauro catheter was placed. The abdomen was entered through the patient's prior Pfannenstiel incision and peritoneum was entered bluntly. After developing a bladder flap on the lower uterine segment a low transverse incision was made on the uterus and head was easily delivered onto the operative field the nose mouth and oropharynx were bulb suctioned. Subsequently a viable female was born with Apgars of 9/10. The was noted to cry move all extremities vigorously on the operative field. The umbilical cord was doubly clamped and ligated and infant handed to the nursery personnel who were present for the delivery. Placenta was delivered and noted to be 3 vessels and normal except for being densely adherent to the fundus. Ring forceps and banjo curette were used to remove placental tissue in pieces. Uterus was exteriorized and remaining placental tissue was removed. The uterus was then closed in 2 layers first with running locked 0 Vicryl suture followed by a second imbricating layer with 0 Vicryl suture. Upon starting the imbricating layer there was noted to be a large 4 cm hematoma which formed in the left angle. Multiple sutures were placed to affect hemostasis and a single stitch was passed to the posterior aspect of the uterus and tied helping to resolve the active 6 cm posterior uterine hematoma as well. We monitored for about 5 minutes with the uterus in the pelvis and there was no further growth of either hematoma. 0 Vicryl suture was then used in a horizontal mattress interrupted fashion to affect final hemostasis of the uterine incision line. Normal fallopian tubes and ovaries were visualized and the uterus was returned to the pelvis. The hematoma was then observed for another 5 minutes with no growth noted. Hemostasis was also noted and rectus abdominis muscles were reapproximated in the midline with interrupted Number 0 Vicryl suture in a horizontal mattress fashion. Fascia was closed with running Number 1 PDS Strata fix suture. Subcutaneous tissue was irrigated with copious amounts of saline solution and then closed with running 3-0 Vicryl suture. Skin was closed with 4-0 monocryl suture in a running subcuticular fashion. Steri strips and a Mepilex dressing were placed across the incision. The patient tolerated the procedure well and was taken to the recovery room in satisfactory condition. Sponge, needle, and instrument counts were all reportedly correct. Urine in Mauro bag was noted to be clear. EBL was less than 500 cc. Ancef 2 gms IV was given prior to the procedure. Spicemen to Pathology: Placenta Complications: None Grafts/Implants Used: None Complications None Admit VTE Documentation VTE Present on Admission: Yes VTE Mechan Device Prophylaxis: SCD's
[2021-09-09] MEDS: Oxytocin 30 units/NS 500 ml 30 UNITS/500 ML IV.SOLN 167 UNITS IV (12:25)
[2021-09-09 14:42] LABS: Pathology Specimen OB SEE PATHOLOGY REPORT
[2021-09-09] MEDS: Lactated Ringers 1,000 ML 100 ML IV (15:46)
[2021-09-09] MEDS: Cefazolin 1 GM/50 ML BAG IV (18:49)
[2021-09-10] VITALS (7 sets, daily range): BP systolic 114–134; BP diastolic 70–94; PULSE 52–70; RESP 16; TEMP 36.3–36.8; O2SAT 98–100
[2021-09-10] MEDS: Ibuprofen 600 MG Tablet PO ×3 (00:28→12:25)
[2021-09-10] MEDS: 0.9% Saline Lock 10 ML Syringe IV (03:45)
[2021-09-10] MEDS: Cefazolin 1 GM/50 ML BAG IV (03:45)
[2021-09-10 05:15] LABS: Hematocrit 24.1 % (37-47); Hemoglobin 7.8 g/dL (12.0-15.0); Mean Corp Hgb Conc 32.4 g/dL (32-36); Mean Corpuscular Hgb 29.7 pg (27.0-32.0); Mean Corpuscular Volume 91.6 fL (81-99); Mean Platelet Vol. 10.6 fl (6.2-12.0); Platelet Count 186 K/mm3 (150-450); RBC Distribution Width CV 13.9 % (11.6-14.6); Red Blood Count 2.63 M/mm3 (4.2-5.4); White Blood Count 15.4 K/mm3 (4.4-11.0)
[2021-09-10] MEDS: Acetaminophen 500 MG Tablet 1000 MG PO ×2 (05:39→11:59)
--- NOTE | 2021-09-10 08:53 | PN.OBGYN_ITS ---
Subjective Subjective Patient without complaints. Tolerating diet well. Denies any orthostatic changes. Some right shoulder pain but otherwise pain well controlled. Minimal vaginal bleeding reported. Objective Data Objective Data Vital Signs: Vital Signs Temp Pulse Resp BP Pulse Ox 97.4 F L 52 L 16 134/93 H 99 09/10/21 07:57 09/10/21 07:57 09/10/21 07:57 09/10/21 07:57 09/10/21 07:57 Oxygen Delivery Method Room Air Weight: 149 lb 11.102 oz Body Mass Index (BMI) 25.7 Intake & Output: Intake and Output for Last 24 Hours 09/08/21 09/09/21 09/10/21 23:59 23:59 23:59 Intake Total 4822.5 / 4822.5 50 / 50 Output Total 1400 / 1400 400 / 400 Balance 3422.5 / 3422.5 -350 / -350 Lab / Micro Data Lab results narrative: Good urine output. Hemoglobin okay. Result Diagrams: 09/10/21 05:05 Labs: Laboratory Results - last 24 hr 09/09/21 09:50: WBC 12.1 H, RBC 3.60 L, Hgb 10.5 L, Hct 32.7 L, MCV 90.8, MCH 29.2, MCHC 32.1, RDW Std Deviation 46.0 H, RDW Coeff of Urban 13.9, Plt Count 276, MPV 10.6, Immature Gran % (Auto) 0.700, Neut % (Auto) 72.7 H, Lymph % (Auto) 21.0, [place] % (Auto) 5.2, Eos % (Auto) 0.2, Baso % (Auto) 0.2, Absolute Neuts (auto) 8.8 H, Absolute Lymphs (auto) 2.55, Nucleated RBC % 0 09/09/21 09:50: Blood Type O NEGATIVE, Antibody Screen TNP 09/09/21 09:50: Antibody Screen NEGATIVE 09/09/21 14:26: Screen NEGATIVE, Baby's Blood Type O POSITIVE, Baby's RAYMOND NEGATIVE 09/10/21 05:05: WBC 15.4 H, RBC 2.63 L, Hgb 7.8 L, Hct 24.1 L, MCV 91.6, MCH 29.7, MCHC 32.4, RDW Std Deviation 46.0 H, RDW Coeff of Urban 13.9, Plt Count 186, MPV 10.6 Micro: Microbiology 09/09/21 09:45 Nasal Secretion SARS-CoV-2 Antigen (Rapid) - Final Assessment & Plan (1) S/P repeat low transverse : PLAN: Plan Doing well post operative day #1 status post repeat section. Patient would like to go home. Will discharge with routine instructions. Instructed to use vitamins and iron. Follow-up in 2 weeks in the office.
--- NOTE | 2021-09-10 08:57 | DCINST_ITS ---
Discharge Instructions Diet Discharge Diet: No restrictions Activity May resume sexual activity in: 4-6 weeks Lifting Restrictions: 20 pounds Additional Activity Instructions:: Nothing in the vagina for 4 weeks please; no lifting more than 20-25 lbs for 6 weeks. Use Ibuprophen 800 mg orally every 8 hours as needed for pain. Can also add Tylenol 1000 mg every 8 hours if needed for pain. If Ibuprophen and Tylenol are not effective then use the Oxycodone but keep in mind it can cause serious constipation issues. Drink lots of water. Call if bleeding more than a pad per hour. Use the colace as constipation is a big issue after this type of surgery. Steps and walking are OK. Activity is encouraged but do not over do it !! Dressing / Incision Call your doctor if your incision/area has: Continuous Slow Oozing, Sudden Increased Bleeding, Increased Pain/ Swelling, Increased Redness and Foul Smelling Discharge Call your doctor if you observe: Fever of 101 or Higher, Inability to urinate, Inability to have a bowel movement and Using more than 1 pad per hour Follow Up Care Please Follow Up With: Tito See MD When: Call [phone] for appointment to be seen in 2 weeks. Test Results: Test results from this visit will be discussed in further detail at your follow- up appointment, if applicable. Discharge Plan Admission Admit Date/Time: 09/09/21 09:30 Primary Reason for Your Visit: Repeat Attending Provider: Tito See Primary Care Provider: Lulú Physician,Norma Primary Discharge Orders/Prescriptions Prescriptions: New oxycodone 5 mg capsule 5 mg PO Q6H PRN (Reason: pain) 7 Days Qty: 14 0RF docusate sodium 100 mg tablet 100 mg PO BID PRN (Reason: constipation) Qty: 60 1RF Continued vit,[id number] 1 TABLET tablet 1 tab PO DAILY Referrals / Follow Up: Care Physician,No Primary [Primary Care Provider] - Disposition Disposition (needs filled in before D/C Order can be placed): Home, Self Care
[2021-09-10] MEDS: Senna/Docusate Sodium 1 Tablet PO (10:48)
[2021-09-10] MEDS: oxyCODONE 5 MG Tablet PO ×2 (10:48→16:56)
== END 2021-09-10 17:20 | disposition home or self-care (01) | DRG 540 ==
PROVIDERS: Admitting Provider Obstetrics & Gynecology; Visit Provider Obstetrics & Gynecology
PROC: 10D00Z1 Extraction of Products of Conception, Low, Open Approach (ICD-10-PCS; CPT 59514; principal; 2021-09-09 11:45)
DX: O34.211 Maternal care for low transverse scar from previous cesarean delivery (principal); O72.0 Third-stage hemorrhage; F17.210 Nicotine dependence, cigarettes, uncomplicated; O43.213 Placenta accreta, third trimester; O36.5930 Maternal care for other known or suspected poor fetal growth, third trimester, not applicable or unspecified; O99.334 Smoking (tobacco) complicating childbirth; O90.2 Hematoma of obstetric wound; O71.7 Obstetric hematoma of pelvis; Z37.0 Single live birth; Z3A.38 38 weeks gestation of pregnancy; Z87.59 Personal history of other complications of pregnancy, childbirth and the puerperium; Z28.310 Unvaccinated for COVID-19; Z28.9 Immunization not carried out for unspecified reason
CPT/HCPCS: 59050; 85025; 85027; 85461; 86850; 86900; 86901; 87811; 88307; 90384; 99218; 99251; J7120; A4216; G0378; G0463; J2405; J2790

== ENCOUNTER 2023-02-23 07:43 | Day surgery (SDC) | payer MEDICAID, SELFPAY ==
[2023-02-23] VITALS (8 sets, daily range): BP systolic 91–112; BP diastolic 68–90; PULSE 58–109; RESP 16–18; TEMP 36.1–36.6; O2SAT 98–100; BMI 23.8
[2023-02-23 08:22] LABS: Internal QC Validated? YES +Cl - CLEAR BKGD; Pregnancy, Urine Negative Negative; Record Kit Lot#,Urine Preg HCG0000667200
[2023-02-23] MEDS: Lactated Ringers 1,000 ML 15 ML IV (08:28)
[2023-02-23 08:29] LABS: Hemoglobin 13.2 g/dL (12.0-15.0); Mean Corp Hgb Conc 33.8 g/dL (32-36); Mean Corpuscular Hgb 31.4 pg (27.0-32.0); Mean Corpuscular Volume 92.6 fL (81-99); Mean Platelet Vol. 9.4 fl (6.2-12.0); Platelet Count 275 K/mm3 (150-450); RBC Distribution Width CV 12.3 % (11.6-14.6); RBC Distribution Width SD 42.1 fl (35.1-43.9); Red Blood Count 4.21 M/mm3 (4.2-5.4)
--- NOTE | 2023-02-23 09:10 | FALS_PTH ---
PATIENT: MARION ZAIDI LOC: [facility] [place] U#:[id number] AGE/SX: 27/F ROOM: RE02/23/[address]: Dr. Kaelyn Lua DO : 1995 BED: DIS: 02/23/2023 SPEC #: [id number] RECD: 02/23/23 10:41 STATUS: CODY REQ #: [id number] FAUSTINO: 02/23/23 09:[address]: Kaelyn Lua DEPT: SURGICAL PATHOLOGY RECD BY: Rody Lenz ENTERED: 02/23/23 12:15 SP TYPE: FALL TUBES OTHR DR: Cornelia Antonio, DESIGN PRINTING MACHINE SETTER-Len Tissues: Fallopian tube Procedures: Surgery Specimen Level II HEADER OPERATION: Laparoscopic salpingectomy PRE-OP DIAGNOSIS: Elective sterilization TISSUE SUBMITTED: Bilateral fallopian tubes MICROSCOPIC DIAGNOSIS Right and left fallopian tubes, bilateral salpingectomies: Complete cross-sections of two fallopian tubes with no pathologic change. AM:juan 02/24/2023 MICROSCOPIC DESCRIPTION Slides are reviewed. GROSS DESCRIPTION Received in fixative is one container labeled with the patient's name and designated bilateral fallopian tubes. The specimen consists of bilateral fallopian tubes including fimbrial ends measuring 5.5 cm in length and 0.5 cm in diameter and 3.5 cm in length and 0.5 cm in diameter. The fallopian tubes are not identified as right or left. Sections reveal unremarkable cut surfaces. Nipple Machine Operator sections are submitted in two cassettes with each cassette containing one fallopian tube. / ALBERT:juan 02/23/2023 TC:4 CPT: 02868 x2
[2023-02-23 09:12] LABS: Anion Gap 7 (5-15); BUN 13 mg/dL (7-18); BUN/Creat Ratio 15.5 RATIO (10-20); Chloride 113 mmol/L (98-107); Creatinine, Serum 0.84 mg/dL (0.55-1.02); EST Glomerular Filtration Rate 88 mL/min (>60); Est Glom Filt Rate - Afr Amer 106 mL/min (>60); Estimated Creatinine Clearance 88.41 ml/min; Glucose 97 mg/dL (74-106); Sodium Level 140 mmol/L (136-145)
[2023-02-23] MEDS: Bupivacaine Mpf 0.5% 30 ML VIAL (09:40)
--- NOTE | 2023-02-23 10:03 | PCM.OPRPT ---
Problems Associated Problem List Diagnoses (1) Request for sterilization: Report of Operation Date of Procedure: 02/23/23 Pre-Operative Diagnosis: Request for sterilization Post-Operative Diagnosis: Request for sterilization Surgery/Procedure Performed:: Laparoscopic bilateral salpingectomy Description of Surgical Findings:: Normal appearing uterus and bilateral adnexa Adhesions of the left adnexa to the pelvic side wall Surgeon: Kaelyn Lua arrow point attacher: Danna Tanner MS3 Type of Anesthesia: General Special Medications: None Specimen's removed: Bilateral fallopian tubes Drains: None Estimated Blood Loss (mL): < 50 Fluids Replaced: 1 L Description of Procedure: The patient was taken to the operating room where she was prepped and draped under general anesthesia in dorsal lithotomy position using yellowfin stirrups. A weighted speculum was placed in the vagina to expose the cervix. The anterior lip of the cervix was grasped with a single-tooth tenaculum. A uterine manipulator was placed. The single-tooth tenaculum and weighted speculum were removed from the vagina. Gloves were changed and attention was turned to the abdominal portion of the procedure. Local was infiltrated all port sites. An infraumbilical incision was made to accommodate a 5 mm port, which was placed under direct visualization using laparoscope. Once confirmed intraperitoneal CO2 insufflation was initiated. No injuries were noted upon entry. The patient was placed in Trendelenburg position. A left lateral 5 mm port was placed. A right lateral 5 mm port was placed. The uterus was upheld from below. The left fallopian tube was followed out to the fimbriated end. Using the LigaSure device the mesosalpinx was serially clamped, cauterized, and transected along the mesosalpinx hugging adjacent to the tube until reaching level of the cornua. Once at the level of the cornua the fallopian tube was transected and removed from the pelvis. The right fallopian tube was adhered to the right ovary and pelvic sidewall. The right fallopian tube was followed out to the fimbriated end. The LigaSure device was used to serially clamp, cauterize, and transect along the mesosalpinx hugging adjacent to fallopian tube until reaching level of the cornua. Once at the level of the cornua the fallopian tube was transected and removed from the pelvis. Some fimbriated end of the fallopian tube was felt to be left remaining in the pelvis due to pelvic sidewall adhesions. Hemostasis was confirmed. The ports were removed and the abdomen was exsufflated. The skin was closed with Monocryl and glue. From below the uterine manipulator was removed and a vaginal sweep was performed. Instrument, sharp, sponge counts were correct and the patient was taken to the recovery in stable condition. The state tested nursing assistant Danna Tannre MS3 assisted with holding the camera, elevating and holding the fallopian tube, and closure. Grafts/Implants Used: None Procedure Start Time: 09:33 Procedure Stop Time: 10:01 Complications None Admit VTE Documentation VTE Present on Admission: No VTE Mechan Device Prophylaxis: SCD's
--- NOTE | 2023-02-23 10:26 | DCINST_ITS ---
Discharge Instructions Diet Discharge Diet: No restrictions Activity Discharge Activity: May Drive (Once you are more than 24 hours out from anesthesia and you feel strong enough to slam on a brake or turn a steering wheel sharply) and May Shower (Once you are more than 24 hours out from surgery) May resume sexual activity in: 1 week (No soaking in water and nothing in the vagina while you are having the bleeding) Ice area for (Minutes): 15 Weight Bearing Status: Weight bearing as tolerated Lifting Restrictions: Nothing greater than 10-15 lbs for 1 week Dressing / Incision Call your doctor if your incision/area has: Continuous Slow Oozing, Sudden Increased Bleeding, Increased Pain/ Swelling, Increased Redness, Foul Smelling Discharge and Swelling at the incision site Call your doctor if you observe: Fever of 101 or Higher, Coldness, Increased Pain, Numbness or Tingling, Change in Color, Inability to urinate, Inability to have a bowel movement, Using more than 1 pad per hour, Shortness of breath, Dizziness, Fainting spells, Swelling in the ankles, Chest pain, Increased palpitations (irregular heartbeat), Calf discomfort and Uncontrolled pain Suture Line Care: Avoid Pulling/Pushing and Avoid Pinching/Bending Remove Dressing in: leave until fall off Cleanse incision/area with: Soap & Water Follow Up Care Please Follow Up With: Kaelyn Lua DO When: 1 week post op exam Test Results: Test results from this visit will be discussed in further detail at your follow- up appointment, if applicable. Discharge Plan Admission Primary Reason for Your Visit: surgery Attending Provider: Kaelyn Lua Primary Care Provider: Cornelia Antonio NP Discharge Orders/Prescriptions Prescriptions: New oxycodone 5 mg tablet 5 mg PO Q6H PRN (Reason: pain) 7 Days Qty: 10 0RF Discontinued norgestimate-ethinyl estradiol [Sprintec (28)] 0.25-35 mg-mcg tablet 1 tab PO DAILY Patient Comments: TAKE 1 TABLET BY MOUTH ONCE DAILY Referrals / Follow Up: Care Physician,No Primary [Non-Staff] - Disposition Disposition (needs filled in before D/C Order can be placed): Home, Self Care
[2023-02-23] MEDS: Oxycodone/Apap 5/325 Tablet PO (11:24)
== END 2023-02-23 12:02 | disposition home or self-care (01) ==
LOC: SDC 07:45 → AC 07:46
PROVIDERS: Anesthesiology; PCP Nurse Practitioner Family; Referring Provider Obstetrics & Gynecology; Visit Provider Obstetrics & Gynecology
PROC: (CPT 58661; principal; 2023-02-23 08:55)
DX: Z30.2 Encounter for sterilization (principal); F17.210 Nicotine dependence, cigarettes, uncomplicated
CPT/HCPCS: 58661; 00840; 80048; 81025; 85027; 86850; 86900; 86901; 88302; J7120; J2405

== ENCOUNTER 2023-05-30 13:19 | Inpatient (IN) | payer MEDICAID, SELFPAY ==
[2023-05-30] VITALS (7 sets, daily range): BP systolic 91–128; BP diastolic 62–85; PULSE 77–92; RESP 12–20; TEMP 36.2–36.5; O2SAT 95–100; BMI 23.6
--- NOTE | 2023-05-30 13:50 | CT_ITS ---
STUDY: CT ABDOMEN AND PELVIS WITH CONTRAST REASON FOR EXAM: Female, 27 years old. 2 day history of right sided abdominal pain. RADIATION DOSAGE (If Supplied By Facility): CTDIvol = ( 17.46 ) mGy, DLP = ( 436.77 ) mGycm TECHNIQUE: Transaxial images were obtained from the dome of the diaphragm to the symphysis pubis without oral contrast. IV 100mL Isovue-370 was administered. Sagittal and coronal images were reconstructed. Individualized dose optimization techniques were used for this CT. COMPARISON: None. FINDINGS: The visualized lung bases are unremarkable. The visualized portions of the heart are within normal limits. Normal liver. Normal gallbladder and extrahepatic biliary system. Normal spleen. Normal pancreas. Normal bilateral adrenal glands. There is a 1.7 cm x 0.9 cm wedge-shaped hypodensity in the peripheral lateral midportion of the right kidney. This may represent either focal pyelonephritis versus possible infarct. Mild degree of right perinephric stranding. Normal left kidney. Normal visualized stomach. Normal small intestine. Normal colon. The appendix is visualized and appears normal. Normal abdominal aorta. Normal inferior vena cava. Normal retroperitoneum. Normal urinary bladder. Follicles are seen in the ovaries. Small amount of fluid is seen in the cul-de-sac. Normal abdominal wall. Normal osseous structures. CT/Abdomen/Pelvis W IV Cont ONLY IMPRESSION: 1.7 cm x 0.9 cm wedge-shaped hypodensity in the peripheral lateral aspect of the right kidney suggestive of either a focal pyelonephritis versusr infarct. Follicles are seen in the right ovary. Small amount of free fluid is seen in the cul-de-sac. Electronically Signed: Jon Chanel MD at 14:43 EDT ,
--- NOTE | 2023-05-30 17:02 | ED.VIS.GI ---
HPI HPI - GI History of Present Illness Informant: patient Narrative Narrative: Delayed note due to unexpected system downtime. Presents pain mid abdomen going to right lower quadrant since yesterday. No fevers. No chills. No vomiting. Had normal bowel movement this morning. Reports mild dysuria. History of bilateral tubal ligation x 2 in the past. No history of similar. PFSH PFSH Medical History Back pain Cardiology follow-up encounter Heart disease History of echocardiogram History of prior with IUGR Shortness of breath on exertion Smoker Wears glasses Home Medications oxycodone 5 mg tablet 5 mg PO Q6H PRN pain 7 days #10 tabs 02/23/23 [Rx Last Taken Unknown] Allergy/AdvReac Type Severity Reaction Status Date / Time tramadol AdvReac Intermediate Nausea/Vom/ Verified 02/23/23 08:24 Diarrhea Surgical History (Updated 02/13/23 @ 08:28 by Deja Demarco) S/P repeat low transverse Social History Smoking Status: Current every day smoker tobacco type: cigarettes ROS ROS ED Constitutional Constitutional ED: Denies chills, fever(s) or sweats Eyes Eyes: Denies change in vision ENT ENT ED: Denies dysphagia or sore throat Cardiovascular Cardiovascular: Denies chest pain, leg edema, palpitations or racing heartbeat Respiratory/Chest Respiratory/Chest: Denies cough, dyspnea or dyspnea on exertion Gastrointestinal Gastrointestinal: Reports abdominal pain; Denies diarrhea, nausea or vomiting Genitourinary Genitourinary ED: Reports dysuria; Denies hematuria or urinary frequency Musculoskeletal Musculoskeletal: Denies back pain, extremity pain or neck pain Integumentary Denies rash or wounds Neurologic Neurologic: Denies headache(s), paresthesias or weakness EXAM Physical Exam Const Positive well nourished and well developed Constitutional Narrative: \ uncomfortable nontoxic General Appearance ED: well developed HEENT Reports moist mucous membranes normocephalic and atraumatic Eyes PERRL, EOMs intact bilaterally and conjunctivae normal General Eye ED: Yes normal appearance of both eyes Neck no lymphadenopathy and supple General: Negative for tenderness Chest Wall Chest: Negative for tenderness Resp normal respiratory effort and normal air movement Effort and Inspection: symmetric chest movement; Negative for respiratory distress Cardio regular rhythm and no murmurs Cardio Narrative: Heart rate 113 Rate: tachycardic Peripheral Pulses: pulses 2+ throughout GI normal to inspection, nondistended, normoactive bowel sounds GI Narrative: Tender palpation right lower quadrant no guarding or rebound. Negative Mederos's. Negative Rovsing's. Palpation: Negative for guarding or rebound tenderness present Back/Spine no CVA tenderness and no thoracic nor lumbar tenderness Extremity normal to inspection General Extremety ED: Negative for edema or tenderness General Extremity: Negative for edema Neuro oriented x3 and no sensory deficits noted Sensorium / Orientation: awake and alert Skin no rashes or lesions noted and no wounds MDM MDM MDM Narrative Medical decision making narrative: Interventions / MDM: Differential diagnosis: Pyelonephritis, UTI Diagnosis considered but do not suspect: Appendicitis however normal CT. Kidney stone however negative CT. My EKG interpretation: N/A Imaging independently reviewed and interpreted by myself: CT abdomen pelvis IV contrast: Per radiology due to system downtime. Perinephric stranding concerns for pyelonephritis versus infarct small area. No hydronephrosis. Normal appendix. External documents reviewed: N/A Test considered but not ordered:N/A ED course: Patient triage heart rate is 151 afebrile. On my evaluation of her heart rate 113 she is uncomfortable with pain. IV established abdominal labs hCG and urine. CT abdomen pelvis ordered further evaluation. Morphine ordered for pain control. Reevaluation for CT scan results concerning for pyelonephritis. Urine returning noting signs of infection urine culture sent along with sepsis labs lactic acid and blood culture due to her tachycardia and white count returned at 15. At the gas returned at 0.8. She covered Rocephin IV. fentanyl IV was ordered for pain control. Renal function returned normal. Reevaluation heart rate now in the 70s. Some more comfortable. With acute pyelonephritis, I did discuss with hospitalist Dr. Cavazos for admission. She is stable for the medical floor. Re-evaluation: stable Disposition discussed with patient/family/significant other: Patient Case discussed with consulting clinician: Hospitalist This note was generated with [employer]ELi[employer] software. It may contain incorrect words, spelling, and punctuation that were not noted in checking the note before signing. Discharge Plan Triage ED Provider: Jose Antonio Charles Dx/Rx/DC Orders Clinical Impression: Acute pyelonephritis, Sinus tachycardia, Abdominal pain Prescriptions: No Action oxycodone 5 mg tablet 5 mg PO Q6H PRN (Reason: pain) 7 Days Qty: 10 0RF Primary Care Provider: Care Physician,No Primary Referrals: Care Physician,No Primary [Primary Care Provider] - Disposition Disposition: [facility]
[2023-05-30] MEDS: Ketorolac 15 MG/ML Vial IV (17:16)
--- NOTE | 2023-05-30 17:25 | PCM.HP.STD ---
HPI - General General Date of Admission: 05/30/23 HPI Narrative MARION ZAIDI, is a 27 F who presents with abdominal pain and flank pain on the right. She has noticed that her urine is little bit darker little stronger odor. She said that she had a similar episode about a month ago but it resolved on its and she presented this time because it was worse in terms of pain. In the ER she was found to be tachycardic which improved with pain medication. She was found to have perinephric stranding on the right on CT scan as well as elevated white blood cell count about 15. She was given a dose of Rocephin in the ER. CT scan does not demonstrate any hydronephrosis. [facility] Medical History Back pain Cardiology follow-up encounter Heart disease History of echocardiogram History of prior with IUGR Shortness of breath on exertion Smoker Wears glasses Home Medications oxycodone 5 mg tablet 5 mg PO Q6H PRN pain 7 days #10 tabs 02/23/23 [Rx Last Taken Unknown] Allergy/AdvReac Type Severity Reaction Status Date / Time tramadol AdvReac Intermediate Nausea/Vom/ Verified 02/23/23 08:24 Diarrhea Family History (Updated 05/30/23 @ 17:[address] Phan Cavazos MD) Other CAD (coronary artery disease) Surgical History (Updated 02/13/23 @ 08:28 by Deja Demarco) S/P repeat low transverse Social History Smoking Status: Current every day smoker tobacco type: cigarettes ROS Constitutional Constitutional: Reports chills and fever(s); Denies fatigue or malaise Eyes Eyes: Denies blurry vision ENT HEENT: Denies headache(s) or nasal discharge Cardiovascular Cardiovascular: Denies chest pain, dyspnea on exertion or syncope Respiratory/Chest Respiratory/Chest: Denies cough, shortness of breath at rest or shortness of breath with exertion Gastrointestinal Gastrointestinal: Reports abdominal pain; Denies constipation, diarrhea, nausea or vomiting Genitourinary Genitourinary: Denies dysuria Neurologic Neurologic: Denies focal weakness, numbness or tremor(s) Psychiatric Psychiatric: Denies anxiety or depression Vital Signs Vital Signs Vital Signs: 05/30/23 17:07 Pulse Rate 92 Respiratory Rate 12 Blood Pressure 128/81 H Blood Pressure Mean 96 Pulse Ox 100 Oxygen Delivery Method Room Air Physical Exam Narrative General: Alert, Oriented x3, Cooperative, No apparent distress HEENT: Atraumatic, PERRLA, EOMI, Normocephalic Oral: Moist Mucosa Neck: Supple, No JVD Lungs: Clear to auscultation, Normal air movement, No rhonchi, No wheeze, No rales Cardiovascular: Tachycardic, Regular Rhythm, Normal S1, Normal S2, No murmurs Abdomen: Soft, mild tender right side with right-sided CVA tenderness, Non-Distended, No Hepato-splenomegaly Extremities: No edema, Capillary Refill Less than 3 Seconds Skin: No rashes, No breakdown Musculoskeletal: No Tenderness to Palpation of Joints or Extremities Neurological: No focal neurological deficits, Motor Exam 5/5 strength throughout, Sensory exam intact to light touch and pain Psych/Mental Status: Normal Affect, Appropriate Assessment & Plan Assessment/Plan (1) Acute pyelonephritis: PLAN: Plan 1. UTI with acute pyelonephritis ? Urine cultures are pending ? CT of her abdomen pelvis shows perinephric stranding on the right there is also some concern for possible infarct however given her age and her blood pressure I feel like this is less likely especially in the setting of her infectious etiology. ? She did receive a dose of Rocephin will transition to twice daily dosing for Cipro ? Will provide her Toradol for pain as reported from the ER that her renal function is stable ? Continue with Zofran for any possible nausea DVT: Ambulation 60 minutes was spent on direct patient care, including documentation as well as chart review and collaboration with colleagues Charges/Coding Visit Charges Inpatient E&M: 53980 Init Hosp L2
[2023-05-30 19:32] LABS: Color, Urine Yellow (Yellow); Glucose, Dipstick Normal (Normal); Ketone-Dipstick Negative (Negative); Mucous, Urine 0 SEEN /hpf (<or=2+); Protein-Dipstick 30 mg/dl (Negative); Urine Bilirubin Dipstick Negative (Negative); Urine Clarity Sl Cloudy (Clear); Urine pH 6.5 (5.0 - 8.0)
[2023-05-30 19:33] LABS: Bacteria 4+ /hpf (None Seen); Leukocyte Esterase-Dipstick 100 /ul (Negative); Nitrite-Dipstick Positive (Negative); Occult Blood-Urine 25 /ul (Negative); Red Blood Cells-Urine 10-25 SEEN /hpf (0-5); Squamous Epithelial Cells - UA 10-25 SEEN /hpf (5-10); Urine Urobilinogen 1 mg/dl (Normal); White Blood Cells 5-10 SEEN /hpf (0-5)
[2023-05-30 19:52] LABS: Hematocrit 37.6 % (37-47); Hemoglobin 12.5 g/dL (12.0-15.0); Mean Corp Hgb Conc 33.2 g/dL (32-36); Mean Corpuscular Hgb 30.6 pg (27.0-32.0); Mean Corpuscular Volume 92.2 fL (81-99); Mean Platelet Vol. 9.8 fl (6.2-12.0); Platelet Count 335 K/mm3 (150-450); RBC Distribution Width CV 12.7 % (11.6-14.6); RBC Distribution Width SD 42.7 fl (35.1-43.9); Red Blood Count 4.08 M/mm3 (4.2-5.4); White Blood Count 15.9 K/mm3 (4.4-11.0)
[2023-05-30 19:53] LABS: Absolute Lymphocyte Count 2.31 X10^3/uL (0.83-4.51); Basophil# 0.08 X10^3/uL; Basophil% 0.3 % (0-1); Eosinophil# 0.04 X10^3/uL; Eosinophils% 0.1 % (0-5); Lymphocyte # 2.31 X10^3/ul (0.83-4.51); Lymphocyte % 14.5 % (19-41); Monocyte# 1.47 X10^3/uL; Monocyte% 9.2 % (0-10); NRBC Flagged by Analyzer 0 % (0-5); Neutrophil % 75.4 % (47-70)
[2023-05-30] MEDS: Acetaminophen 500 MG Tablet 1000 MG PO (20:07)
[2023-05-30] MEDS: Morphine 2 MG/ML Syringe IV (20:13)
[2023-05-30 21:20] LABS: Lactic Acid 0.8 mmol/L (0.4-1.9)
[2023-05-30 21:51] LABS: AST(SGOT) 7 U/L (15-37); Alanine Aminotransfer ALT/SGPT 15 U/L (13-56); Albumin, Serum 3.9 g/dL (3.2-5.0); Alkaline Phosphatase 79 U/L (45-117); BUN 8 mg/dL (7-18); BUN/Creat Ratio 10.8 RATIO (10-20); Calcium,Total 9.5 mg/dL (8.5-10.1); Creatinine, Serum 0.74 mg/dL (0.55-1.02); EST Glomerular Filtration Rate 102 mL/min (>60); Est Glom Filt Rate - Afr Amer 124 mL/min (>60); Estimated Creatinine Clearance 100.36 ml/min; Globulin 3.8 g/dL (2.2-4.2); Glucose 97 mg/dL (74-106); Lipase 13 U/L (13-75); Protein, Total 7.7 g/dL (6.4-8.2)
[2023-05-30 21:52] LABS: Anion Gap 5 (5-15); Chloride 110 mmol/L (98-107); Potassium 3.7 mmol/L (3.5-5.1); Sodium Level 140 mmol/L (136-145)
[2023-05-30 21:53] LABS: Internal QC Validated? YES +Cl - CLEAR BKGD; Pregnancy, Serum, hCG Quali. NEGATIVE Negative; Record Kit Lot#, Serum Preg. 718086
[2023-05-30] MEDS: Ciprofloxacin 400 MG/200 ML BAG 200 MG IV (22:15)
[2023-05-31] MEDS: Ketorolac 15 MG/ML Vial IV ×3 (00:23→11:46)
[2023-05-31 04:07] VITALS: BP 90/53; PULSE 80; RESP 18; TEMP 36.3; O2SAT 98
[2023-05-31] MEDS: Acetaminophen 500 MG Tablet 1000 MG PO (05:03)
[2023-05-31] MEDS: Morphine 2 MG/ML Syringe IV (05:03)
[2023-05-31] MEDS: 0.9% Normal Saline (500mL Bag) 500 ML 999 ML IV (05:04)
[2023-05-31 05:32] VITALS: BP 90/68; PULSE 69; RESP 18; TEMP 36.7; O2SAT 99
[2023-05-31 07:52] LABS: Absolute Lymphocyte Count 2.74 X10^3/uL (0.83-4.51); Absolute Neutrophil Count 6.4 X10^3/uL (2.0-7.7); Basophil# 0.03 X10^3/uL; Basophil% 0.3 % (0-1); Hematocrit 32.2 % (37-47); Hemoglobin 10.7 g/dL (12.0-15.0); Lymphocyte # 2.74 X10^3/ul (0.83-4.51); Lymphocyte % 26.8 % (19-41); Mean Corp Hgb Conc 33.2 g/dL (32-36); Mean Corpuscular Hgb 31.2 pg (27.0-32.0); Mean Corpuscular Volume 93.9 fL (81-99); Mean Platelet Vol. 9.6 fl (6.2-12.0); Monocyte# 0.97 X10^3/uL; Monocyte% 9.5 % (0-10); NRBC Flagged by Analyzer 0 % (0-5); Neutrophil # 6.36 X10^3/uL (2.7-7.7); Neutrophil % 62.1 % (47-70); Platelet Count 275 K/mm3 (150-450); RBC Distribution Width CV 12.6 % (11.6-14.6); RBC Distribution Width SD 43.6 fl (35.1-43.9); Red Blood Count 3.43 M/mm3 (4.2-5.4); White Blood Count 10.2 K/mm3 (4.4-11.0)
[2023-05-31 07:53] VITALS: O2SAT 100
[2023-05-31 08:00] VITALS: BP 103/77; PULSE 67; RESP 18; TEMP 36.4; O2SAT 100
[2023-05-31 08:22] LABS: Anion Gap 6 (5-15); BUN 10 mg/dL (7-18); BUN/Creat Ratio 16.8 RATIO (10-20); Calcium,Total 8.4 mg/dL (8.5-10.1); Chloride 112 mmol/L (98-107); EST Glomerular Filtration Rate 130 mL/min (>60); Est Glom Filt Rate - Afr Amer 157 mL/min (>60); Estimated Creatinine Clearance 123.77 ml/min; Glucose 96 mg/dL (74-106); Sodium Level 141 mmol/L (136-145)
[2023-05-31] MEDS: oxyCODONE 5 MG Tablet PO (09:03)
[2023-05-31] MEDS: Ciprofloxacin 400 MG/200 ML BAG 200 MG IV (09:04)
--- NOTE | 2023-05-31 10:25 | PCM.PN.HOSP ---
Reason for Visit Reason for Visit: Diagnoses Acute pyelonephritis (05/30/23) Objective Data Objective Data Vital Signs: Vital Signs Temp Pulse Resp BP Pulse Ox O2 Del Method 97.6 F L 67 18 103/77 100 Room Air 05/31/23 08:00 05/31/23 08:00 05/31/23 08:00 05/31/23 08:00 05/31/23 08:00 05/31/23 08:00 Oxygen Delivery Method Room Air Weight: 137 lb 14.4 oz Body Mass Index (BMI) 23.6 Intake & Output: Intake and Output for Last 24 Hours 05/29/23 05/30/23 05/31/23 23:59 23:59 23:59 Intake Total 200 / 1200 2180 / 2180 Output Total 200 / 200 Balance 200 / 1200 1979 Lab / Micro Data 05/31/23 07:25 05/31/23 07:25 Labs: Laboratory Results - last 24 hr 05/30/23 13:14: WBC 15.9 H, RBC 4.08 L, Hgb 12.5, Hct 37.6, MCV 92.2, MCH 30.6, MCHC 33.2, RDW Std Deviation 42.7, RDW Coeff of Urban 12.7, Plt Count 335, MPV 9.8, Immature Gran % (Auto) 0.500, Neut % (Auto) 75.4 H, Lymph % (Auto) 14.5 L, [place] % (Auto) 9.2, Eos % (Auto) 0.1, Baso % (Auto) 0.3, Absolute Neuts (auto) 12.0 H, Absolute Lymphs (auto) 2.31, Nucleated RBC % 0, Sodium 140, Potassium 3.7, Chloride 110 H, Carbon Dioxide 25.0, Anion Gap 5, BUN 8, Creatinine 0.74, Estim Creat Clear Calc 100.36, Est GFR (MDRD) Af Amer 124, Est GFR (MDRD) Non-Af 102, BUN/Creatinine Ratio 10.8, Glucose 97, Lactic Acid 0.8, Calcium 9.5, Total Bilirubin 0.80, AST 7 L, ALT 15, Alkaline Phosphatase 79, Total Protein 7.7, Albumin 3.9, Globulin 3.8, Albumin/Globulin Ratio 1.0, Lipase 13, Serum , Qual NEGATIVE 05/30/23 13:30: Urine Color Yellow, Urine Clarity Sl Cloudy, Urine pH 6.5, Ur Specific [place] 1.010, Urine Protein 30 H, Urine Glucose (UA) Normal, Urine Ketones Negative, Urine Occult Blood 25 H, Urine Nitrite Positive H, Urine Bilirubin Negative, Urine Urobilinogen 1 H, Ur Leukocyte Esterase 100 H, Urine RBC 10-25 SEEN, Urine WBC 5-10 SEEN, Ur Squamous Epith Cells 10-25 SEEN, Urine Bacteria 4+, Urine Mucus 0 SEEN 05/31/23 07:25: WBC 10.2, RBC 3.43 L, Hgb 10.7 L, Hct 32.2 L, MCV 93.9, MCH 31.2, MCHC 33.2, RDW Std Deviation 43.6, RDW Coeff of Urban 12.6, Plt Count 275, MPV 9.6, Immature Gran % (Auto) 0.300, Neut % (Auto) 62.1, Lymph % (Auto) 26.8, [place] % (Auto) 9.5, Eos % (Auto) 1.0, Baso % (Auto) 0.3, Absolute Neuts (auto) 6.4, Absolute Lymphs (auto) 2.74, Nucleated RBC % 0, Sodium 141, Potassium 4.0, Chloride 112 H, Carbon Dioxide 23.0, Anion Gap 6, BUN 10, Creatinine 0.60, Estim Creat Clear Calc 123.77, Est GFR (MDRD) Af Amer 157, Est GFR (MDRD) Non-Af 130, BUN/Creatinine Ratio 16.8, Glucose 96, Calcium 8.4 L Micro: Microbiology 05/30/23 13:30 Urine, Clean Catch Urine Culture - Preliminary Presumptive E. coli Assessment & Plan Assessment/Plan (1) Acute pyelonephritis: PLAN: Plan 27-year-old female was admitted with mid abdominal pain with migration to right lower quadrant for 1 day before admission. No fever chills or vomiting. Mild dysuria/burning micturition. No prior history of UTI 1. UTI with acute pyelonephritis ? Urine cultures are pending ? CT of her abdomen pelvis shows perinephric stranding on the right there is also some concern for possible infarct however given her age and her blood pressure I feel like this is less likely especially in the setting of her infectious etiology. ? She did receive a dose of Rocephin will transition to twice daily dosing for Cipro ? Will provide her Toradol for pain as reported from the ER that her renal function is stable ? Continue with Zofran for any possible nausea DVT: Ambulation 60 minutes was spent on direct patient care, including documentation as well as chart review and collaboration with colleagues
--- NOTE | 2023-05-31 11:11 | DCINST_ITS ---
Discharge Instructions Diet Discharge Diet: No restrictions Activity Discharge Activity: Return to Normal Activity Weight Bearing Status: Weight bearing as tolerated Dressing / Incision Call your doctor if you observe: Fever of 101 or Higher, Coldness, Increased Pain, Numbness or Tingling, Change in Color, Inability to urinate, Inability to have a bowel movement, Using more than 1 pad per hour, Shortness of breath, Dizziness, Fainting spells, Swelling in the ankles, Chest pain, Prolonged hiccupping, Increased palpitations (irregular heartbeat) and Calf discomfort Follow Up Care When: IN 2 WEEKS Test Results: Test results from this visit will be discussed in further detail at your follow- up appointment, if applicable. Discharge Plan Admission Admit Date/Time: 05/30/23 17:23 Primary Reason for Your Visit: Right sided pyelonephritis Attending Provider: Lewis Lau Primary Care Provider: Care Physician,No Primary Consulting Providers: Phan Cavazos Instructions Additional Instructions / Restrictions: Advised [id number] Tylenol 500 mg 1 tablet for moderate pain and 2 tablets for severe pain respectively. [id number], probiotic 1 tablet 2 times daily for 10 days. Discharge Orders/Prescriptions Prescriptions: New oxycodone 5 mg Tablet 2.5 - 5 mg PO Q4H PRN PRN (Reason: Pain Score 6-10) 3 Days Qty: 10 0RF ciprofloxacin HCl [Cipro] 500 mg tablet 500 mg PO BID 8 Days Qty: 16 0RF Referrals / Follow Up: Care Physician,No Primary [Primary Care Provider] - Within 1 Week Waleska Simmons MD [Med Staff - Active Staff] - Within 2 Weeks (For right-sided pyelonephritis) Disposition Disposition (needs filled in before D/C Order can be placed): Home, Self Care
--- NOTE | 2023-05-31 11:18 | PCM.DC.SUM ---
Providers Date of Admission: 05/30/23 Date of Discharge: 05/31/23 Primary Care Physician: No Primary Care Phys Reason For Visit: UTI WITH PYELONEPHRITIS Diagnosis Discharge Diagnosis (1) Acute pyelonephritis: Status: Acute Code(s): N10 - Acute pyelonephritis Plan 27-year-old female was admitted with mid abdominal pain with migration to right lower quadrant for 1 day before admission. No fever chills or vomiting. Mild dysuria/burning micturition. No prior history of UTI 1. UTI with acute pyelonephritis: Patient admitted to [facility] floor. Clinical findings and exam suggestive of right pyelonephritis. Abdomen pelvis CT reviewed and shows 1.5 x 0.9 cm with a separate hypodensity peripheral lateral aspect of right kidney/12 without focal pyelonephritis or infarct. Prelim urine culture growing E. coli more than 100,000 colonies. Patient pressed hard for going home as she has small kids to take care and [employer]. She had 2 doses of IV ceftriaxone. Patient given prescription of ciprofloxacin 500 mg twice daily for 8 more days for total of 10 days of antibiotics. Prescription also given for oxycodone 2.5 to 5 mg for moderate to severe pain respectively total 10 tablets. OARRS report checked. Unintentional overdose risk 320. Advised [id number] Tylenol 1 to 2 tablets as needed for for moderate to severe pain respectively and fever and probiotics 1 tablet twice daily for 10 days.. DVT: Ambulation Discharge medication reconciliation done. Discharge follow-up instructions completed. Discharge process discussed with the patient and all questions were answered to patient's satisfaction. Follow with PCP in 1 to 2 weeks Total time spent, exact 35 minutes on discharge meds reconciliation, examination, coordination of care with nurses and ancillary staff, review of imaging and blood test and discussion with the patient on follow-up instructions. Clinical Impression(s) from Imaging Studies Abdomen/Pelvis CT 05/30/23 13:50 IMPRESSION: 1.7 cm x 0.9 cm wedge-shaped hypodensity in the peripheral lateral aspect of the right kidney suggestive of either a focal pyelonephritis versusr infarct. Follicles are seen in the right ovary. Small amount of free fluid is seen in the cul-de-sac. Medications at Discharge Home Medications ciprofloxacin HCl 500 mg tablet (Cipro) 500 mg PO BID 8 days #16 tabs 05/31/23 oxycodone 5 mg tablet 2.5 - 5 mg (0.5 - 1 x 5 mg) PO Q4H PRN PRN Pain Score 6-10 3 days #10 tabs 05/31/23 Physical Exam Narrative Complaint of right-sided abdominal pain and right renal angle pain. Complain of chills but no fever. Mild nausea but not vomiting General: Alert, Oriented x3, Cooperative HEENT: Atraumatic, PERRLA, EOMI, Normocephalic Oral: No Gingival or Mucosal Lesions/ Ulcerations Neck: Supple, No JVD, Negative Carotid Bruits Chest wall/Lungs: Air entry diminished in bilateral lung bases. No crepitation/rhonchi Cardiovascular: Regular rate, Regular Rhythm, Normal S1, Normal S2, No M/G/R Abdomen: Bowel Sounds Present, Soft, tenderness over right hypochondrium Non-Distended : Tenderness present over right renal angle. No dysuria. No renal angle tenderness. No suprapubic tenderness. Extremities: No edema, Capillary Refill Less than 3 Seconds Skin: No rashes, No breakdown Musculoskeletal: No Tenderness to Palpation of Joints or Extremities Neurological: Cranial nerves II-XII grossly intact, DTR 2+/4. No acute focal neurological deficit. Psych/Mental Status: Normal Affect, Appropriate. Weight / BMI Weight Weight: 137 lb 14.4 oz Body Mass Index (BMI) 23.6 ABG / Lab / Microbiology Data 05/31/23 07:25 05/31/23 07:25 Laboratory: Laboratory Results - last 24 hr 05/30/23 13:14: WBC 15.9 H, RBC 4.08 L, Hgb 12.5, Hct 37.6, MCV 92.2, MCH 30.6, MCHC 33.2, RDW Std Deviation 42.7, RDW Coeff of Urban 12.7, Plt Count 335, MPV 9.8, Immature Gran % (Auto) 0.500, Neut % (Auto) 75.4 H, Lymph % (Auto) 14.5 L, Graves % (Auto) 9.2, Eos % (Auto) 0.1, Baso % (Auto) 0.3, Absolute Neuts (auto) 12.0 H, Absolute Lymphs (auto) 2.31, Nucleated RBC % 0, Sodium 140, Potassium 3.7, Chloride 110 H, Carbon Dioxide 25.0, Anion Gap 5, BUN 8, Creatinine 0.74, Estim Creat Clear Calc 100.36, Est GFR (MDRD) Af Amer 124, Est GFR (MDRD) Non-Af 102, BUN/Creatinine Ratio 10.8, Glucose 97, Lactic Acid 0.8, Calcium 9.5, Total Bilirubin 0.80, AST 7 L, ALT 15, Alkaline Phosphatase 79, Total Protein 7.7, Albumin 3.9, Globulin 3.8, Albumin/Globulin Ratio 1.0, Lipase 13, Serum , Qual NEGATIVE 05/30/23 13:30: Urine Color Yellow, Urine Clarity Sl Cloudy, Urine pH 6.5, Ur Specific [place] 1.010, Urine Protein 30 H, Urine Glucose (UA) Normal, Urine Ketones Negative, Urine Occult Blood 25 H, Urine Nitrite Positive H, Urine Bilirubin Negative, Urine Urobilinogen 1 H, Ur Leukocyte Esterase 100 H, Urine RBC 10-25 SEEN, Urine WBC 5-10 SEEN, Ur Squamous Epith Cells 10-25 SEEN, Urine Bacteria 4+, Urine Mucus 0 SEEN 05/31/23 07:25: WBC 10.2, RBC 3.43 L, Hgb 10.7 L, Hct 32.2 L, MCV 93.9, MCH 31.2, MCHC 33.2, RDW Std Deviation 43.6, RDW Coeff of Urban 12.6, Plt Count 275, MPV 9.6, Immature Gran % (Auto) 0.300, Neut % (Auto) 62.1, Lymph % (Auto) 26.8, Graves % (Auto) 9.5, Eos % (Auto) 1.0, Baso % (Auto) 0.3, Absolute Neuts (auto) 6.4, Absolute Lymphs (auto) 2.74, Nucleated RBC % 0, Sodium 141, Potassium 4.0, Chloride 112 H, Carbon Dioxide 23.0, Anion Gap 6, BUN 10, Creatinine 0.60, Estim Creat Clear Calc 123.77, Est GFR (MDRD) Af Amer 157, Est GFR (MDRD) Non-Af 130, BUN/Creatinine Ratio 16.8, Glucose 96, Calcium 8.4 L Microbiology: Microbiology 05/30/23 13:30 Urine, Clean Catch Urine Culture - Preliminary Presumptive E. coli D/C Instructions Discharge Diet: No restrictions Weight Bearing Status: Weight bearing as tolerated Call your doctor if you observe: Fever of 101 or Higher, Coldness, Increased Pain, Numbness or Tingling, Change in Color, Inability to urinate, Inability to have a bowel movement, Using more than 1 pad per hour, Shortness of breath, Dizziness, Fainting spells, Swelling in the ankles, Chest pain, Prolonged hiccupping, Increased palpitations (irregular heartbeat) and Calf discomfort When: IN 2 WEEKS Meaningful Use Info Meaningful Use Diagnoses (Choose all that apply): None applicable Discharge Plan Admission Admit Date/Time: 05/30/23 17:23 Primary Reason for Your Visit: Right sided pyelonephritis Attending Provider: Lewis Lau Primary Care Provider: Care Physician,No Primary Consulting Providers: Phan Cavazos Instructions Additional Instructions / Restrictions: Advised [id number] Tylenol 500 mg 1 tablet for moderate pain and 2 tablets for severe pain respectively. [id number], probiotic 1 tablet 2 times daily for 10 days. Discharge Orders/Prescriptions Prescriptions: New oxycodone 5 mg Tablet 2.5 - 5 mg PO Q4H PRN PRN (Reason: Pain Score 6-10) 3 Days Qty: 10 0RF ciprofloxacin HCl [Cipro] 500 mg tablet 500 mg PO BID 8 Days Qty: 16 0RF Referrals / Follow Up: Waleska Simmons MD [Med Staff - Active Staff] - Within 2 Weeks (For right-sided pyelonephritis) Care Physician,No Primary [Primary Care Provider] - Within 1 Week Disposition Disposition (needs filled in before D/C Order can be placed): Home, Self Care Charges/Coding Visit Charges Inpatient E&M: 70294 Disch Hosp >30min
--- NOTE | 2023-05-31 11:40 | CASEMGMT ---
JUDY HUDSON Assessment: Face to Face with pt for initial transition planning/care coordination assessment. JUDY HUDSON introduced self and role at [facility], pt voices understanding and consents to assessment. Pt is A&O x4 and answers all questions appropriately at this time. Pt sitting up in bed with friend at bedside. Pt agreeable to assessment with friend present. Care providers, pharmacy, and demographics verified/updated. Admitting Dx: UTI with pyelonephritis PCP:None, pt denies need for a list. She states she will go to her friend's doctor. Specialists:Denies Preferred Pharmacy:[facility] Retail Insurance: [facility] Prescription Benefit: yes LNOK: Nayeli Neil, mother; Kings Thornton, sig other Living Arrangements: Pt lives with mother and children in a two story home with a couple of steps to enter. Pt reports she is I in ADL's and denies concerns at home. Transportation: Pt drives self and denies concerns with transportation. DME:Denies HHC/SNF: Denies hx of Pt states no concerns with going home at time of dc. Pt states no further concerns/needs. CM to follow. Advised pt to ask CM if any further question/concerns/needs arise, voices understanding. Pt Goal: Home Plan: Home Shmuel KIM CM
--- NOTE | 2023-05-31 12:24 | PHA.DC.MC.R ---
Pharmacy [facility] has performed discharge medication reconciliation and counseling for this patient. 1. CIPROFLOXACIN 500MG PO BID X 8 DAYS 2. OXYCODONE 2.5-5MG PO Q4H PRN PAIN 6-10 The patient's discharge medication list was reviewed for discrepancies and discrepancies were resolved. The patient was counseled on the following discharge medications and changes in medications for homegoing were reviewed. The Reason for Use, instructions for use, and potential side effects were reviewed for all new medications. The patient's questions regarding all of their medications were answered. The patient was able to verbally demonstrate an understanding of their discharge medications. Medications at Discharge Home Medications ciprofloxacin HCl 500 mg tablet (Cipro) 500 mg PO BID 8 days #16 tabs 05/31/23 oxycodone 5 mg tablet 2.5 - 5 mg (0.5 - 1 x 5 mg) PO Q4H PRN PRN Pain Score 6-10 3 days #10 tabs 05/31/23
== END 2023-05-31 12:31 | disposition home or self-care (01) | DRG 463 ==
LOC: ED 17:07 → MS3 17:42
PROVIDERS: Admitting Provider Family Medicine; Emergency Provider Emergency Medicine; Visit Provider Internal Medicine
DX: N10 Acute pyelonephritis (principal); F17.210 Nicotine dependence, cigarettes, uncomplicated
CPT/HCPCS: 36415; 74177; 80048; 80053; 81001; 83605; 83690; 84703; 85025; 87040; 87086; 87088; 87186; 96365; 96375; 99283; 99285; 99406; J7030; J7040; Q9967; A4216; J0744; J2405

== ENCOUNTER → 2023-10-05 | Outpatient (CLI) | payer MEDICAID, SELFPAY ==
--- NOTE | 2023-10-05 13:51 | CT_ITS ---
STUDY: CT ABDOMEN AND PELVIS WITH AND WITHOUT CONTRAST REASON FOR EXAM: Female, 27 years old. Unspecified abdominal pain RADIATION DOSAGE (If Supplied By Facility): CTDIvol = ( 12.53 ) mGy, DLP = ( 1020.66 ) mGycm TECHNIQUE: Transaxial images were obtained from the dome of the diaphragm to the symphysis pubis without oral contrast. IV 100mL Isovue-300 was administered. Sagittal and coronal images were reconstructed. Individualized dose optimization techniques were used for this CT. COMPARISON: 05/30/2023 FINDINGS: The visualized lung bases are unremarkable. The visualized portions of the heart are within normal limits. Normal liver. The gallbladder is contracted. Normal spleen. Normal pancreas. Normal bilateral adrenal glands. Normal right kidney. In particular, air resolution of the area of decreased enhancement within the midsection of right kidney with a focal concavity consistent with resolved focal pyelonephritis or infarct with a small scar. Normal left kidney. Normal visualized stomach. Normal small intestine. Normal colon. The appendix is visualized and appears normal. Normal abdominal aorta. Normal inferior vena cava. Normal retroperitoneum. Normal urinary bladder. Enlargement of the uterine cervix with stranding of the surrounding fat extending around the uterus possibly consistent with pelvic inflammatory disease. Clinical correlation is recommended. No loculated fluid collection to suggest tubo-ovarian abscess. Normal abdominal wall. Normal osseous structures. CT/CT Abd/Pelvis W/WO Contrast IMPRESSION: 1. Interval resolution of right renal focal pyelonephritis or infarct with a small scar. 2. Possible pelvic inflammatory disease and clinical correlation is recommended. Electronically Signed: Marc Gregorio MD at 10:33 EDT ,
== END | disposition home or self-care (01) ==
LOC: CT 13:50
PROVIDERS: PCP Nurse Practitioner Family; Referring Provider Urology; Visit Provider Urology
DX: R10.9 Unspecified abdominal pain (principal)
CPT/HCPCS: 74178; Q9967

== ENCOUNTER 2024-06-10 18:04 | Emergency (ER) | payer MEDICAID, SELFPAY ==
[2024-06-10 18:05] VITALS: BP 125/111; PULSE 100; RESP 16; TEMP 36.8; O2SAT 98; BMI 22.4
[2024-06-10 20:15] LABS: Absolute Lymphocyte Count 3.99 X10^3/uL (0.83-4.51); Basophil# 0.06 X10^3/uL; Basophil% 0.5 % (0-1); Eosinophil# 0.11 X10^3/uL; Eosinophils% 0.9 % (0-5); Hematocrit 40.5 % (37-47); Hemoglobin 13.9 g/dL (12.0-15.0); Lymphocyte # 3.99 X10^3/ul (0.83-4.51); Lymphocyte % 31.1 % (19-41); Mean Corp Hgb Conc 34.3 g/dL (32-36); Mean Corpuscular Hgb 32.9 pg (27.0-32.0); Mean Corpuscular Volume 95.7 fL (81-99); Mean Platelet Vol. 9.1 fl (6.2-12.0); Monocyte# 0.68 X10^3/uL; Monocyte% 5.3 % (0-10); NRBC Flagged by Analyzer 0 % (0-5); Neutrophil # 7.96 X10^3/uL (2.7-7.7); Neutrophil % 61.8 % (47-70); Platelet Count 318 K/mm3 (150-450); RBC Distribution Width CV 12.6 % (11.6-14.6); RBC Distribution Width SD 44.3 fl (35.1-43.9); Red Blood Count 4.23 M/mm3 (4.2-5.4); White Blood Count 12.9 K/mm3 (4.4-11.0)
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
--- NOTE | 2024-06-10 20:20 | CT_ITS ---
PROCEDURE: CTA HEAD AND NECK W/ CONTRAST 06/10/2024 REASON FOR EXAM: RIGHT NECK TRAUMA TECHNIQUE: CTA imaging of the head and neck from the aortic arch to the skull vertex with intravenous contrast. Coronal and Sagittal reconstruction series were provided. 3D, 3D post processing, 3D reconstructions, Maximum intensity projection (MIPs) Volume rendering and Shaded surface rendering was provided. CONTRAST: Omnipaque 350 VOLUME: 100mL Gauge IV One or more dose reduction techniques were used (e.g., Automated exposure control, adjustment of the mA and/or kV according to patient size, use of iterative reconstruction technique). COMPARISON: None FINDINGS: ACUTE: No acute infarct or hemorrhage. No mass effect or herniation. BRAIN PARENCHYMA: Signal intensities are within normal limits for age. VENTRICLES/EXTRA-AXIAL SPACES: No hydrocephalus or extra-axial fluid collections. HEAD CTA: Normal contrast enhancement in the intracranial carotid, vertebral, basilar, cerebral, and cerebellar arteries. No evidence of significant stenosis or aneurysm. NECK CTA: Normal contrast enhancement in the cervical carotid and vertebral arteries. Aortic arch, great vessels, bilateral internal carotid arteries, and bilateral vertebral artery origins are patent. No evidence of significant stenosis or dissection. BONES: Vertebral body height and alignment are normal. The dens is intact, the lateral masses of C1 are normally aligned, and the atlantodental interval is normal. SOFT TISSUES: No prevertebral soft tissue swelling. No suspicious mass or abnormal lymphadenopathy tissues. OTHER: Visualized lung apices are clear. CT/CTA Head AND Neck W/ Contrast IMPRESSION: No acute intracranial pathology. No evidence of significant stenosis or aneurysm in the intracranial and cervica l arteries. Reading Location: [facility]
[2024-06-10] MEDS: Morphine 4 MG/ML Syringe IV (20:28)
[2024-06-10 21:11] LABS: Anion Gap 13 (5-15); BUN 12 mg/dL (4-19); BUN/Creat Ratio 18.9 RATIO (10-20); Calcium,Total 9.2 mg/dL (7.6-11.0); Carbon Dioxide 21.4 mmol/L (21.0-32.0); Chloride 104 mmol/L (98-108); Creatinine, Serum 0.66 mg/dL (0.70-1.20); EST Glomerular Filtration Rate 124 (>60); Estimated Creatinine Clearance 111.54 ml/min (50-250); Glucose 85 mg/dL (70-99); Potassium 3.8 mmol/L (3.3-5.1); Sodium Level 138 mmol/L (133-145)
[2024-06-10 22:05] VITALS: PULSE 65; RESP 18; O2SAT 98
[2024-06-10] MEDS: Ketorolac 30 MG/ML Syringe IV (22:22)
== END 2024-06-10 22:44 | disposition home or self-care (01) ==
PROVIDERS: Emergency Provider Emergency Medicine; Visit Provider Emergency Medicine
DX: M54.2 Cervicalgia (principal); R51.9 Headache, unspecified; F17.200 Nicotine dependence, unspecified, uncomplicated
CPT/HCPCS: 70496; 70498; 80048; 85025; 96374; 96375; 99283; Q9967; A4216